=== PATIENT | male | born 1950 | race Caucasian/White ===

== ENCOUNTER 2019-12-12 15:15 | Inpatient (IN) | payer OTHER ==
[~2019-12-12] VITALS: Ht 185.4 cm; Wt 79.0 kg
[2019-12-12 15:27] VITALS: BP 135/71
[2019-12-12 15:53] LABS: BASO # 0.1 10*3/uL (0.0-0.1); BASO % 0.9 % (0.0-1.0); EOS # 0.3 10*3/uL (0.0-0.4); EOS % 2.9 % (1.0-4.0); HEMATOCRIT 48.6 % (42.0-52.0); HEMOGLOBIN 16.3 g/dl (14.0-18.0); LYMPH # 1.7 10*3/uL (1.3-4.4); LYMPH % 15.4 % (27.0-41.0); MEAN CELL VOLUME 94.6 fl (80.0-94.0); MEAN CORPUSCULAR HGB 31.7 pg (27.0-31.0); MEAN CORPUSCULAR HGB CONC 33.5 g/dl (33.0-37.0); MEAN PLATELET VOLUME 9.6 fl (9.6-12.3); MONO # 1.1 10*3/uL (0.1-1.0); MONO % 9.4 % (3.0-9.0); NEUT # 7.9 10*3/uL (2.3-7.9); NEUT % 70.9 % (47.0-73.0); PLATELET COUNT AUTOMATED 313 10*3/uL (130-400); RED BLOOD COUNT 5.14 10*6/uL (4.50-5.90); RED CELL DISTRI WIDTH 12.9 % (0-14.5); WHITE BLOOD COUNT 11.1 10*3/uL (4.8-10.8)
[2019-12-12 16:09] LABS: ALBUMIN 3.3 gm/dl (3.1-4.5); ALKALINE PHOSPHATASE 77 U/L (45-117); BUN 21 mg/dl (7-24); CHLORIDE 103 mmol/L (98-107); CREATININE 1.29 mg/dL (0.70-1.30); POTASSIUM 3.9 mmol/L (3.5-5.1); SGOT/AST 18 IU/L (3-35); SGPT/ALT 27 U/L (12-78); SODIUM 137 mmol/L (136-145)
[2019-12-12 16:11] LABS: ACETAMINOPHEN (TYLENOL) < 5.0 ug/ml (10-30); ETHYL ALCOHOL < 3.0 mg/dl (<3)
[2019-12-12 16:17] LABS: BILIRUBIN NEGATIVE (NEGATIVE); BLOOD TRACE-INTACT (NEGATIVE); CLARITY CLOUDY (CLEAR); COLOR YELLOW (YELLOW); GLUCOSE 3+ (NEGATIVE); KETONE NEGATIVE (NEGATIVE); LEUKO ESTERASE NEGATIVE (NEGATIVE); NITRITE NEGATIVE (NEGATIVE); UROBILINOGEN 0.2 E.U./dl (0.2-1.0)
[2019-12-12 16:18] LABS: RBC 0-2 rbc/hpf (0-2); WBC 0-2 wbc/hpf (0-5)
[2019-12-12 16:23] LABS: URINE AMPHETAMINES < 1000 (1000ng/ml); URINE BENZODIAZEPINES < 200 (200ng/ml); URINE CANNABINOIDS (THC) < 50 (50ng/ml); URINE COCAINE < 300 (300ng/ml); URINE METHADONE < 300 (300ng/ml); URINE OPIATES < 300 (300ng/ml)
[2019-12-12] MEDS ORDERED: SERTRALINE HYD100 MG PO (16:26)
[2019-12-12] MEDS ORDERED: VISTARIL50 MG PO ×2 (16:26→18:22)
[2019-12-12 16:27] LABS: URINE BARBITURATES < 200 (200ng/ml); URINE PHENCYCLIDINE < 25 (25ng/ml)
[2019-12-12] MEDS ORDERED: EXELON1 EACH T (18:20)
[2019-12-12] MEDS ORDERED: TOUJEO SOL300 UNIT/1 SQ (18:21)
[2019-12-12] MEDS ORDERED: NOVOLOG10 ML SC (18:24)
[2019-12-12] MEDS ORDERED: ASPIRIN CHEWABL81 MG PO (18:25)
[2019-12-12] MEDS ORDERED: BISACODYL LAXATI5 MG PO (18:25)
[2019-12-12] MEDS ORDERED: VITAMIN D35000 UNIT PO (18:26)
[2019-12-12] MEDS ORDERED: VITAMIN D325 MC1 PO (18:27)
[2019-12-12] MEDS ORDERED: GLIPIZIDE XL5 M1 PO (18:28)
[2019-12-12] MEDS ORDERED: GLUCOSAMINE HC500 M1 PO (18:29)
[2019-12-12] MEDS ORDERED: METFORMIN HCL1000 M1 PO (18:30)
[2019-12-12] MEDS ORDERED: METOPROLOL SUCC25 M2 PO (18:31)
[2019-12-12] MEDS ORDERED: PLAVIX75 M1 PO (18:31)
[2019-12-12] MEDS ORDERED: PRAVASTATIN SOD40 MG PO ×2 (18:32)
[2019-12-12 19:30] VITALS: BP 150/63
[2019-12-12 22:00] VITALS: BP 150/63
[2019-12-13 03:42] LABS: BASO # 0.1 10*3/uL (0.0-0.1); BASO % 0.8 % (0.0-1.0); EOS # 0.4 10*3/uL (0.0-0.4); HEMATOCRIT 47.7 % (42.0-52.0); HEMOGLOBIN 15.7 g/dl (14.0-18.0); LYMPH # 1.8 10*3/uL (1.3-4.4); LYMPH % 14.5 % (27.0-41.0); MEAN CELL VOLUME 94.5 fl (80.0-94.0); MEAN CORPUSCULAR HGB 31.1 pg (27.0-31.0); MEAN CORPUSCULAR HGB CONC 32.9 g/dl (33.0-37.0); MEAN PLATELET VOLUME 9.4 fl (9.6-12.3); MONO # 1.1 10*3/uL (0.1-1.0); MONO % 8.6 % (3.0-9.0); NEUT % 72.6 % (47.0-73.0); PLATELET COUNT AUTOMATED 303 10*3/uL (130-400); RED BLOOD COUNT 5.05 10*6/uL (4.50-5.90); RED CELL DISTRI WIDTH 12.9 % (0-14.5); WHITE BLOOD COUNT 12.4 10*3/uL (4.8-10.8)
[2019-12-13 03:59] LABS: ALKALINE PHOSPHATASE 68 U/L (45-117); BUN 18 mg/dl (7-24); CHLORIDE 111 mmol/L (98-107); CREATININE 0.95 mg/dL (0.70-1.30); POTASSIUM 3.2 mmol/L (3.5-5.1); SGOT/AST 12 IU/L (3-35); SGPT/ALT 22 U/L (12-78); SODIUM 146 mmol/L (136-145); TOTAL PROTEIN 6.6 gm/dL (6.4-8.2)
[2019-12-13 07:52] VITALS: BP 125/63
[2019-12-13 20:00] VITALS: BP 135/80
[2019-12-14 08:00] VITALS: BP 132/81
[2019-12-14 19:53] VITALS: BP 138/79
[2019-12-15 08:00] VITALS: BP 128/89
[2019-12-15 20:00] VITALS: BP 125/66
[2019-12-16 07:31] VITALS: BP 145/79
[2019-12-16 19:41] VITALS: BP 126/67
[2019-12-17 08:04] VITALS: BP 128/76
[2019-12-17 20:00] VITALS: BP 140/72
[2019-12-18 08:00] VITALS: BP 148/80
[2019-12-18 19:46] VITALS: BP 145/85
[2019-12-19 08:00] VITALS: BP 126/72
[2019-12-19 20:00] VITALS: BP 118/68
[2019-12-20 07:01] LABS: CHOLESTEROL 148 mg/dL (<200); HDL CHOLESTEROL 44 mg/dl (40-60); LDL CHOLESTEROL 80 mg/dL (9-159); TRIGLYCERIDES 122 mg/dl (<150); VLDL CHOLESTEROL 24 mg/dL (6-40)
[2019-12-20 07:30] VITALS: BP 150/76
[2019-12-20 20:00] VITALS: BP 126/58
[2019-12-21 07:45] VITALS: BP 122/71
[2019-12-21 19:44] VITALS: BP 135/80
[2019-12-22 07:17] VITALS: BP 135/70
[2019-12-22 19:05] VITALS: BP 147/72
[2019-12-23 07:23] VITALS: BP 050/78; BP 150/78
[2019-12-23 19:51] VITALS: BP 159/70
[2019-12-24 07:48] VITALS: BP 138/88
[2019-12-24 16:58] LABS: BILIRUBIN NEGATIVE (NEGATIVE); BLOOD NEGATIVE (NEGATIVE); CLARITY CLEAR (CLEAR); COLOR YELLOW (YELLOW); GLUCOSE NEGATIVE (NEGATIVE); KETONE NEGATIVE (NEGATIVE); LEUKO ESTERASE NEGATIVE (NEGATIVE); NITRITE NEGATIVE (NEGATIVE); PH 6.5 (5.0-9.0); SPECIFIC GRAVITY 1.015 (1.005-1.030); UROBILINOGEN 0.2 E.U./dl (0.2-1.0)
[2019-12-24 17:02] LABS: BACTERIA TRACE; HYALINE CAST 0-2
[2019-12-24 19:37] VITALS: BP 125/56
[2019-12-25 07:33] VITALS: BP 129/64
[2019-12-25] MEDS ORDERED: B121000 MCG/1 IM (09:35)
[2019-12-25] MEDS ORDERED: RISPERIDONE1 MG PO (09:35)
[2019-12-25] MEDS ORDERED: MIRTAZAPINE15 M2 PO (09:35)
[2019-12-25] MEDS ORDERED: VITAMIN D3125 MC1 PO (09:35)
[2019-12-25] MEDS ORDERED: ATARAX,VISTARIL10 MG PO (09:35)
[2019-12-25] MEDS ORDERED: RIVASTIGMINE TAR3 M1 PO (09:35)
[2019-12-25] MEDS ORDERED: MEMANTINE HCL10 MG PO (09:35)
[2019-12-25] MEDS ORDERED: LANTUS SOL100 UNIT/1 SC (10:22)
[2019-12-25] MEDS ORDERED: NOVOLOG10 ML SC (10:31)
[2019-12-25] MEDS ORDERED: PRAVASTATIN SOD40 MG PO (10:31)
[2019-12-25] MEDS ORDERED: ASPIRIN CHEWABL81 MG PO (10:31)
[2019-12-25] MEDS ORDERED: METFORMIN HCL1000 M1 PO (10:31)
[2019-12-25] MEDS ORDERED: GLIPIZIDE XL5 M1 PO (10:31)
[2019-12-25] MEDS ORDERED: METOPROLOL SUCC25 M2 PO (10:31)
[2019-12-25] MEDS ORDERED: PLAVIX75 M1 PO (10:31)
== END 2019-12-25 11:10 | disposition home or self-care (01) | DRG 56 ==
LOC: ED 15:15 → 3N 18:08
PROVIDERS: Physician Assistant; Registered Nurse; ADMIT Psychiatry & Neurology Psychiatry
DX: G30.9 Alzheimer's disease, unspecified (principal); N17.0 Acute kidney failure with tubular necrosis; R65.10 Systemic inflammatory response syndrome (SIRS) of non-infectious origin without acute organ dysfunction; E87.2 Acidosis; F02.81 Dementia in other diseases classified elsewhere, unspecified severity, with behavioral disturbance; F33.2 Major depressive disorder, recurrent severe without psychotic features; F01.51 Vascular dementia, unspecified severity, with behavioral disturbance; E11.65 Type 2 diabetes mellitus with hyperglycemia; F63.81 Intermittent explosive disorder; R26.2 Difficulty in walking, not elsewhere classified; F17.210 Nicotine dependence, cigarettes, uncomplicated; F41.9 Anxiety disorder, unspecified; E55.9 Vitamin D deficiency, unspecified; I10 Essential (primary) hypertension; E78.5 Hyperlipidemia, unspecified; Z79.4 Long term (current) use of insulin; Z79.82 Long term (current) use of aspirin; Z79.899 Other long term (current) drug therapy; K59.00 Constipation, unspecified

== ENCOUNTER 2020-01-07 20:02 | Inpatient (IN) | payer OTHER ==
[~2020-01-07 20:02] MED LIST: ASPIRIN CHEWABL81 MG PO; ATARAX,VISTARIL10 MG PO; B121000 MCG/1 IM; BISACODYL LAXATI5 MG PO; EXELON1 EACH T; GLIPIZIDE XL5 M1 PO; GLUCOSAMINE HC500 M1 PO; LANTUS SOL100 UNIT/1 SC; MEMANTINE HCL10 MG PO; METFORMIN HCL1000 M1 PO; METOPROLOL SUCC25 M2 PO; MIRTAZAPINE15 M2 PO; NOVOLOG10 ML SC; PLAVIX75 M1 PO; PRAVASTATIN SOD40 MG PO; RISPERIDONE1 MG PO; RIVASTIGMINE TAR3 M1 PO; SERTRALINE HYD100 MG PO; TOUJEO SOL300 UNIT/1 SQ; VISTARIL50 MG PO; VITAMIN D3125 MC1 PO; VITAMIN D325 MC1 PO; VITAMIN D35000 UNIT PO
[2020-01-07] MEDS ORDERED: MOTRIN IB200 M1 PO (20:20)
[2020-01-07] MEDS ORDERED: MOBIC15 MG PO (20:24)
[2020-01-07] MEDS ORDERED: SEROQUEL25 MG PO (20:27)
[2020-01-07] MEDS ORDERED: HALDOL5 MG PO (20:28)
[2020-01-07] MEDS ORDERED: TOUJEO MAX300 UNIT/1 SQ (20:32)
[2020-01-07 23:00] VITALS: BP 164/88
--- NOTE | 2020-01-07 23:00 | NUR ---
FLAQUITA JOINER a 69 year old M admitted via stretcher from [facility] as a emergency 72 hr. hold admission. Arrived on unit at 2230. ALLERGIES: NKA. Vital signs are: [id number] 164/88. The client REFUSED TO SIGN ANY OF THE following forms. Authorization For The Release of Medical Information, Clothing List, Consent to Voluntary Admission and Hospitalization, Consent and Release Forms/Receipt of Rights, Acknowledgement of Advance Directive Information, Behavioral Health Consent Form, and Informed Consent of Medications. HE DID GIVE VERBAL CONSENT FOR PICTURES TO BE TAKEN OF HIS WOUNDS. Admitted under the services of Dr. HELADIO KERN,[facility]. A search was conducted and hazardous articles were removed. Client was oriented to the unit. CR KING
--- NOTE | 2020-01-07 23:15 | NUR ---
WHILE TAKING PICTURES FOR WOUNDS, PT HAD INCREASED AGITATION, UPON ASSESSING RIGHT HAND BRUISE, PT REFUSED TO ALLOW STAFF TO TAKE MEASUREMENTS. ALLOWED PICTURE ONLY.
--- NOTE | 2020-01-07 23:30 | NUR ---
PT HAD INCREASED AGITATION. CURSING AT STAFF NUMEROUS TIMES. CLENCHED FISTS. CONTINUES TO ESCALATE & ASKING WHERE IS HIS . PUNCHED BED MATTRESS SEVERAL TIMES WITH RIGHT HAND. MEDICATED WITH ATIVAN 1 MG IM @ 2324.
--- NOTE | 2020-01-07 23:31 | NUR ---
SPOKE TO DR GILL ABOUT ADMISSION. THEN DR LEMONS CALLED AND FULL UPDATE PROVIDED. MEDICATION REC READY TO BE REVIEWED.
[2020-01-07 23:45] VITALS: BP 164/88
--- NOTE | 2020-01-08 00:15 | NUR ---
PT HAS CONTINUED TO ESCALATE. CONTINUED BEHAVIORS. AMBULATED IN THE [place] & STOOD AT DOOR OF ANOTHER PT. ANGERED ON REDIRECTION. CONSTANT PROFANITY. YELLING OUT FOR HIS . SWINGING AT STAFF WITH VERBAL THREATS. MEDICATED WITH GEODON 10 MG IM @ 0008.
--- NOTE | 2020-01-08 00:23 | NUR ---
MESSAGE OF ADMISSION AND FULL UPDATE PROVIDED ON ANSWERING MACHINE FOR ZIA DAO
--- NOTE | 2020-01-08 04:36 | NUR ---
PT AWAKE AT THIS TIME. SLEPT PAST 0100. YELLING OUT FOR HIS PERFECTO.
[2020-01-08 06:05] LABS: BASO # 0.1 10*3/uL (0.0-0.1); BASO % 0.6 % (0.0-1.0); EOS # 0.2 10*3/uL (0.0-0.4); EOS % 1.8 % (1.0-4.0); HEMATOCRIT 40.5 % (42.0-52.0); LYMPH % 19.6 % (27.0-41.0); MEAN CELL VOLUME 96.2 fl (80.0-94.0); MEAN CORPUSCULAR HGB 31.6 pg (27.0-31.0); MEAN CORPUSCULAR HGB CONC 32.8 g/dl (33.0-37.0); MONO # 0.8 10*3/uL (0.1-1.0); MONO % 7.8 % (3.0-9.0); NEUT # 7.2 10*3/uL (2.3-7.9); NEUT % 69.8 % (47.0-73.0); PLATELET COUNT AUTOMATED 282 10*3/uL (130-400); RED BLOOD COUNT 4.21 10*6/uL (4.50-5.90); RED CELL DISTRI WIDTH 13.2 % (0-14.5); WHITE BLOOD COUNT 10.2 10*3/uL (4.8-10.8)
[2020-01-08 06:33] LABS: ALBUMIN 3.2 gm/dl (3.1-4.5); ALKALINE PHOSPHATASE 66 U/L (45-117); BUN 16 mg/dl (7-24); CHLORIDE 109 mmol/L (98-107); CHOLESTEROL 121 mg/dL (<200); CREATININE 0.87 mg/dL (0.70-1.30); HDL CHOLESTEROL 40 mg/dl (40-60); LDL CHOLESTEROL 56 mg/dL (9-159); POTASSIUM 3.7 mmol/L (3.5-5.1); SGOT/AST 16 IU/L (3-35); SGPT/ALT 18 U/L (12-78); SODIUM 143 mmol/L (136-145); TOTAL PROTEIN 6.6 gm/dL (6.4-8.2); TRIGLYCERIDES 126 mg/dl (<150); VLDL CHOLESTEROL 25 mg/dL (6-40)
--- NOTE | 2020-01-08 06:37 | NUR ---
FLAQUITA JOINER [id number] Please refer to the physician's history and physical for past medical history, comorbid conditions, and allergies. Diagnosis: INTERMITTANT EXPLOSIVE DISORDER Doc Score: 16,AT RISK WOUND DESCRIPTIONS: Wound Number: 1 Location of the wound: left elbow Type of wound: skin tear Thickness: Partial Size: 4.0cm x 0.8cm x <0.1cm Tunneling: none Undermining: none Sinus Tract: none Presence of Exudate: none Amount: None Color: Dark red Odor: None Periwound Skin Appearance: Erythema Wound edges: approximated Pain (associated with wound): none at time of assessment How does patient state this happened? pt unable to stated how this happened Wound Number: 2 Location of the wound: left 2nd toe medial Type of wound: DTI Size: 3.0cm x 0.7cm x <0.1cm Tunneling: none Undermining: none Sinus Tract: none Presence of Exudate: none Amount: None Color: Dark red Odor: None Periwound Skin Appearance: Normal Wound edges: approximated Pain (associated with wound): none at time of assessment How does patient state this happened? pt unable to state how this happened Wound Number: 3 Location of the wound: left 4th toe Type of wound: DTI Size: 0.6cm x 0.5cm x <0.1cm Tunneling: none Undermining: none Sinus Tract: none Presence of Exudate: none Amount: None Color: Red, Purple Odor: None Periwound Skin Appearance: Normal Wound edges: approximated Pain (associated with wound): none at time of assessment How does patient state this happened? pt unable to state how this happened Wound Number: 4 Location of the wound: left foot 3rd toe Type of wound: DTI Size: 1.5cm x 2.5cm x <0.1cm Tunneling: none Undermining: none Sinus Tract: none Presence of Exudate: none Amount: None Color: Purple, Dark Red Odor: None Periwound Skin Appearance: Normal Wound edges: approximated Pain (associated with wound): none at time of assessment How does patient state this happened? pt unable to state how this happened Wound Number: 5 Left elbow ecchymotic area measures 14.0cm x 9.0cm x <0.1cm. No drainage noted at time of assessment. No pain noted at time of assessment. Pt unable to state how this happened Wound Number: 6 Right hand ecchymotic area measures 14.5cm x 8.5cm x <0.1cm. No drainage noted at time of assessment. No pain noted at time of assessment. Pt unable to state how this happened Wound Number: 7 Location of the wound: left 2nd toe lateral Type of wound: DTI Size: 3.0cm x 1.0cm x <0.1cm Tunneling: none Undermining: none Sinus Tract: none Presence of Exudate: none Amount: None Color: Red Odor: None Periwound Skin Appearance: Normal Wound edges: approximated Pain (associated with wound): none at time of assessment How does patient state this happened? pt unable to state how this happened Wound Number: 8 Location of the wound: left top of foot Type of wound: scab Thickness: Partial Size: 0.6cm x 0.5cm x <0.1cm Tunneling: none Undermining: none Sinus Tract: none Presence of Exudate: none Amount: None Color: Red Odor: None Periwound Skin Appearance: Normal Wound edges: approximated Pain (associated with wound): none at time of assessment How does patient state this happened? pt unable to state how this happened Wound Number: 9 Location of the wound: right top of foot Type of wound: scab Thickness: Partial Size: 0.2cm x 0.2cm x <0.1cm Tunneling: none Undermining: none Sinus Tract: none Presence of Exudate: none Amount: None Color: Red Odor: None Periwound Skin Appearance: Normal Wound edges: approximated Pain (associated with wound): none at time of assessment How does patient state this happened? pt unable to state how this happened Wound Number: 10 Location of the wound: right 4th toe Type of wound: DTI Size: 0.2cm x 0.4cm x <0.1cm Tunneling: none Undermining: none Sinus Tract: none Presence of Exudate: none Amount: None Color: Red Odor: None Periwound Skin Appearance: Normal Wound edges: approximated Pain (associated with wound): none at time of assessment How does patient state this happened? pt unable to state how this happened Wound Number: 11 Location of the wound: left knee Type of wound: abrasion Thickness: Partial Size: 2.0cm x 3.7cm x 0.1cm Tunneling: none Undermining: none Sinus Tract: none Presence of Exudate: none Amount: None Color: Red Odor: None Periwound Skin Appearance: Normal Wound edges: approximated Pain (associated with wound): none at time of assessment How does patient state this happened? pt unable to state how this happened Wound Number: 12 Location of the wound: right knee Type of wound: abrasion Thickness: Partial Size: 1.5cm x 2.0cm x <0.1cm Tunneling: none Undermining: none Sinus Tract: none Presence of Exudate: none Amount: None Color: Red Odor: None Periwound Skin Appearance: Normal Wound edges: approximated Pain (associated with wound): none at time of assessment How does patient state this happened? pt unable to state how this happened Periarea red satelitte areas noted at time of assessment. Musty odor noted at time of assessment. Buttocks red and blanchable at time of assessment. No open areas noted to buttocks. No drainage at time of assessment. Patient incontient of urine and stool at this time. Pericare provided by this RN as well as RN caring for patient Valeria. Surface the patient is resting on: Ghislaine Watters SKIN PREVENTION RECOMMENDATION: 1. Pressure redistribution support surface as appropriate 2. Elevate heels 3. Remove boots/TEDS every shift and reapply 4. Head of bed 30 degrees as tolerated 5. Assess nutrition and hydration 6. Manage moisture 7. Avoid the use of containment devices while in bed 8. Use absorptive products on surfaces limit layers of linens on bed 9. Turn and reposition every 1-2 hours in bed and every 1 hour in chair as tolerated 10. Weight shifts every 15 minutes while up in chair 11. Offloading with pillows or device to keep heels elevated off bed 12. Monitor skin at least every shift 13. Inspect under medical devices twice a day WOUND TREATMENT RECOMMENDATIONS: Continue wheelchair cushion when oob. Heel raiser pro boots to bilateral feet while in bed. Elbow protectors to bilateral elbows at all times expect for hygiene. Cleanse periarea with soap and water and apply nystatin powder every 8 hours. Cleanse buttocks with soap and water and apply hydraguard every shift and prn for soiling. Partial thickness guidelines: Cleanse left elbow, right knee and left knee with nss and apply sureprep around the wound hydrogel to wound bed and cover with optifoam gentle. DTI guidelines: Apply sureprep to right 4th toe, left 2nd toe medial, left 2nd toe lateral, left 4th toe, and left 3rd toe BID and leave areas open to air. Venous and arterial studies to bilateral extremities due to non-healing wound.
[2020-01-08 07:07] LABS: VITAMIN D, 25-HYDROXY 45.4 ng/mL (30-100)
[2020-01-08 08:00] VITALS: BP 168/78
--- NOTE | 2020-01-08 08:33 | NUR ---
PHYSICAL THERAPY Screen and PT eval received will follow thank you Francisca Guillory PT
[2020-01-08 08:49] VITALS: BP 132/72
--- NOTE | 2020-01-08 08:49 | NUR ---
KINDRA MARCELINO CNP ON UNIT TO ASSESS PATIENT.
--- NOTE | 2020-01-08 08:50 | NUR ---
KINDRA MARCELINO CNP ON UNIT TO ASSESS PATIENT.
--- NOTE | 2020-01-08 09:11 | NUR ---
TREATMENT PLAN MEETING WAS HELD WITH DR. LEIJA, ADRIEL PLUMMER RN AND DREDGE WORKER. PLAN FOR DISCHARGE NEXT WEEK. DR. LEIJA HAS REQUESTED PAS FOR POSSIBLE PLACEMENT AND PT/OT CONSULT.
--- NOTE | 2020-01-08 09:44 | NUR ---
Dr. Patty Bhagat HYDROSTATIC TUBING TESTER notified of wound care recommendations.
--- NOTE | 2020-01-08 11:44 | NUR ---
Nutritional Support Services Note: Pt has wounds noted to knees and periarea. Appetite is good for meals. 1800cal diet as ordered. Pt receives a night snack. Recommend Glucerna OS po TID with meals to help increase kcal and protein to promote healing. Will follow if needed. Zehra Powers Rdn Ld
--- NOTE | 2020-01-08 12:15 | NUR ---
P: INCREASED RESTLESSNESS, AGITATION , VERBAL AGGRESSION TOWARDS STAFF, THROWING LUNCH FOOD/DRINK; MEAL TRAY ON FLOOR. BROKE HEEL PROTECTOR STRAPS, TAKES HEEL PROTECTORS OFF-NON COMPLAINT. YELLING OUT FOR PERFECTO-SPOUSE. I:ONE ON ONE, REDIRECTIONS, REORIENTATIN, CHANGE OF ENVIORNMENT WITH LOW STIMULI AND PLACED PHONE CALL TO SPOUSE PER PATIENT REQUEST. R: INEFFECTIVE. BEHAVIORS CONTINUED TO ESCULATE. PRN ATIVAN 1MG GIVEN IN RIGHT DELTOID. PATIENT IS ALERT TO PERSON WITH CONFUSION. BELIEVES HE IS IN [place], YEAR 1976. MOOD IS IRRITABLE, RESTLESSS, ANGRY, VERBAL AGGRESSIIVE. DENIES ANY HALLUCINATIONS, DELUSIONS, HI/SI OR PAIN. MEDICATION COMPLAINT. Q 15 MINUTE SAFETY CHECKS MAINTAINED. UP IN CHADWICK CHAIR FOR COMFORT. 2 PERSON ASSIST WITH ACTIVITIES OF DAILY LIVING, INCONTINENT OF BOWEL AND BLADDER. SET UP FOR MEALS, INTAKES ARE VARY. P: CONTINUE TO MONITOR MOOD, AGGRESSION, AND EFFECTIVENESS OF PRN ATIVAN. PROVIDE ONE ON ONE, REDIRECTION/ORIENTATION, CHANGE OF ENVIRONMENT. ENCOURAGE GROUP PARTICIPATION AND MEAL INTAKES.
--- NOTE | 2020-01-08 12:15 | NUR ---
Nursing screen and occupational therapy orders received. OTR spoke with patient's nurse, Enriqueta, who stated patient has increased agitation, and to defer an OT evaluation to a later date. Will continue to follow. Thank you. Christie Berkowitz OTR/L
--- NOTE | 2020-01-08 12:15 | NUR ---
PHYSICAL THERAPY Therapy spoke with nurse (Enriqueta) regarding PT/OT evaluation this date. Nursing reporting that patient is agitated. Plan to defer PT evaluation this date and attempt again at a later date. Thank you. Megan Ch,PT,DPT
--- NOTE | 2020-01-08 12:49 | NUR ---
INITIAL CLINICALS FAXED TO [facility] AT [phone]
--- NOTE | 2020-01-08 13:00 | NUR ---
client was here less than 30 days on the unit, however i did meet with client and assess him. he is confused and upset, he reports that he might as well because what good is he, he doesmt understand where his is and asks about her frequently. he said that he gets very mad and beats on things, his hand is red and he was tearing up his chair and his leg guards. he reprts that he cant figure anything out. he resides with his , and became more combative and confused. please review the psychosocial from december 2019 for hx.
--- NOTE | 2020-01-08 13:15 | NUR ---
PRN ATIVAN EFFECTIVE, PATIENT IN A CALM DEMEANOR. PATIENT STRAIGHT CATH FOR UA/C&S, TOLERATED WELL, BED BATH PROVIDED WITH NO AGGRESSION. TREATMENT IN PLACE. PATIENT ASSISTED UP IN CHADWICK CHAIR AND IN DINING ROOM, LISTENING TO MUSIC.
[2020-01-08 13:49] LABS: BILIRUBIN NEGATIVE (NEGATIVE); BLOOD NEGATIVE (NEGATIVE); CLARITY CLEAR (CLEAR); COLOR YELLOW (YELLOW); GLUCOSE NEGATIVE (NEGATIVE); KETONE NEGATIVE (NEGATIVE); LEUKO ESTERASE NEGATIVE (NEGATIVE); NITRITE NEGATIVE (NEGATIVE); SPECIFIC GRAVITY 1.025 (1.005-1.030); UROBILINOGEN 0.2 E.U./dl (0.2-1.0)
--- NOTE | 2020-01-08 18:00 | NUR ---
PATIENT'S SPOUSE CALLED IN FOR UPDATE. INFORMED NURSE THAT PATIENT FELL OUT OF BED AT HOME ON SATURDAY. WAS COMPLAINING OF PAIN ON SATURDAY. PATIENT SITTING IN CHADWICK CHAIR, RESTING QUIETLY. REPOSITIONED IN CHAIR FOR DINNER. ASKED PATIENT IF HE HAD ANY PAIN, NONE AT THIS TIME. ASSESSED ROM OF MOTION NO DIFFERENCES NOTED TO BILATERAL EXTREMITIES. NO SWELLING OR REDNESS NOTED TO SHOULDERS. BRUISES NOTED TO LEFT UPPER ARM, NEAR SHOULDER/ARMPIT. WILL CONTINUE TO MONITOR.
[2020-01-08 19:43] VITALS: BP 160/80
--- NOTE | 2020-01-08 19:58 | NUR ---
24 HR chart check completed.
--- NOTE | 2020-01-08 20:56 | NUR ---
P-RESTLESS, AGITATION, CONFUSION, VERBAL AGGRESSION I-PROVIDE 1:1 FOR EMOTIONAL SUPPORT, REORIENT, REDIRECT, ADMINISTER MEDS, MONITOR SLEEP R-PT IRRITABLE & EASILY AGITATED & YELLS OUT FREQUENTLY FOR HIS , ALERT TO PERSON ONLY & VERY CONFUSED. UNRECEPTIVE TO REORIENTATION. 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 ATE SNACK INDEPENDENTLY & TAKING FLUIDS. INCONTINENT OF BLADDER. HS BEDSIDE GLUCOSE 291. P-CONTINUE TO MONITOR BEHAVIORS & PROVIDE PHYSICAL ASSISTANCE & EMOTIONAL SUPPORT.
--- NOTE | 2020-01-08 21:39 | NUR ---
PT HAS CONTINUED TO ESCELATE. DISRUPTIVE TO THE UNIT. YELLING OUT FOR HIS . POUNDING ON CHADWICK CHAIR TRAY. EASILY AGITATED WITH PRESENTATION OF REALITY OF WHERE HIS IS. ATTEMPTS TO KICK AT STAFF. VERBAL INTERVENTION INEFFECTIVE. MEDICATED WITH ATIVAN 1 MG IM @ 2112.
--- NOTE | 2020-01-09 06:17 | NUR ---
AM BEDSIDE GLUCOSE 127
--- NOTE | 2020-01-09 06:43 | NUR ---
ATIVAN HAS BEEN EFFECTIVE & PT WAS SLEEPING AT 2300. NOTED TO SLEEP APPX 6 HOURS WITH A FEW BRIEF RESTLESS AWAKENINGS.
[2020-01-09 07:45] VITALS: BP 132/70
--- NOTE | 2020-01-09 07:50 | NUR ---
Patient resting quietly with no c/o discomfort. Respirations easy and regular. Vital signs stable. No overt distress. Breakfast tray saved d/t pt sleeping at this time. Maty HNP- on unit to see pt at this time. MADELYN JUAREZ
--- NOTE | 2020-01-09 09:25 | NUR ---
Peg CHILI PEPPER GRINDER on unit to see pt at this time, update given.
--- NOTE | 2020-01-09 10:30 | NUR ---
AM GROUP - GOAL SETTING. Spent time talking with pts in group setting re: setting goals for the day. Encouraged pt to set short term goal that could be accomplished this day. Pt states "my only goal for all my life is to be with my 24 hours a day, 7 days a week".
--- NOTE | 2020-01-09 10:43 | NUR ---
Pt's Elenita called in for update, update given. asked this RN if there had been an xray done on left shoulder d/t pt falling out of bed at home on Saturday and complaining of pain to left shoulder. Advised this RN would discuss with physician. states she will call in later today to speak with pt. This RN assessed pt, small bruise noted to top of left shoulder. Pt denies pain to area. Pt denies pain anywhere else. ROM WNL for pt. Peg LOADING UNIT OPERATOR CRIMPING updated, states will obtain left shoulder xray.
--- NOTE | 2020-01-09 13:03 | NUR ---
Pt becoming agitated, yelling/cursing at staff. Demanding to see his . Pt took off clip alarm and threw across dining room. Escort called at this time re: taking pt to xray. Pt too agitated at this time, will reattempt. Pt took 1300 dose of Vistaril without difficulty. Will cont to monitor.
--- NOTE | 2020-01-09 15:17 | NUR ---
Attempted to call radiology x2 to reattempt xray at this time as pt is more calm at this time. No answer. Will reattempt.
--- NOTE | 2020-01-09 15:20 | NUR ---
PM GROUP - STRETCHING/CHAIR YOGA. Pt agreed to participate but instead napped throughout afternoon group.
--- NOTE | 2020-01-09 16:22 | NUR ---
Pt off unit for left shoulder xray at this time with escort, U MHW and security installer.
--- NOTE | 2020-01-09 16:44 | NUR ---
Pt returned to unit from xray without incident.
--- NOTE | 2020-01-09 17:25 | NUR ---
Pt ate 100% of dinner, pleasant and cooperative. Asked to lay down. Pt spoke to on telephone then laid down for rest period at this time. Pt educated on use of call katz and "call don't fall", pt verbalized understanding. Bed alarm activated.
--- NOTE | 2020-01-09 17:28 | NUR ---
P- Labile mood, confusion, poor ST memory recall restless and difficult to redirect at times. Pt voices wish when upset. I- Orientation, mood and behaviors assessed. Assessed pt for SI/HI, intent or plan. Assessed pt for s/s hallucinations, paranoia and/or delusions. Medications administered as per physician's orders. Assistance with ADL care provided as needed. Encouraged pt to attend and participate in [place] milieu groups and activities. R- Pt is alert and oriented to self only, otherwise confused. Very poor ST memory recall noted. Pt requires frequent reorientation by staff which is only effective for short periods of time. Resps easy and even on room air. Labile mood and affect noted, pt ranges from calm to agitated/demanding to overwhelmingly depressed and tearful. Pt denies SI/HI, intent or plan when asked. However, pt does make statements indicative of passive wish whenever he becomes upset. Pt intermittently tearful while on phone with and was overheard making negative statements such as "why can't I just ? Then you'll be rid of me. I'm no good anyway". Emotional support provided at conclusion of call with positive effect. Pt denies hallucinations, no response to internal stimuli noted. No paranoia noted. Pt is medication compliant without difficulty. Continent of bowel and bladder this date, compliant with hands on care. No aggressive behaviors displayed. P- Plan to continue current treatment, continue to monitor mood and behaviors, provide appropriate reorientation, redirection and 1:1 as needed. Continue to encourage medication compliance as well as group attendance and participation.
--- NOTE | 2020-01-09 17:47 | NUR ---
shift chart check completed.
[2020-01-09 19:30] VITALS: BP 138/67
--- NOTE | 2020-01-09 21:22 | NUR ---
24 HR chart check completed.
--- NOTE | 2020-01-09 23:14 | NUR ---
P: CONFUSION, POO ST MEMORY RECALL, AGGITATION I:aSSESS MOOD AND BEHAVIOR, ASSESS SI/HI, MONITOR FOR HALLUCINATIONS, DELUSIONS, AND PARANOIA. aSSIST WITH CARE AND ENCOURAGE MWED COMPLIANCE. eNCOURAGE VERBALIZATION OF FEELINGS. R: fREQUENT REORIENTATION AND REDIRECTION BY STAFF. ALERT AND ORIENT TO SELF ONLY. MOOD CHANGES QUICKLY...RANGES FROM CALM AND PLOEASANT TO RESTLESS AND AGGITATED TO DEPRESSED AND CRYING. OBSESSIVE ABOUT SPEAKING WITH HIS ON THE PHONE, WHEN HE DOES, HE BECOMES ANGRY WITH HER AND AGGITATED. DIFFICULT TO REDIRECT. TELLS HER HE WANTSA TO SO SHE DOESN'T HAVE TO WORRY WBOUT HIM ANYMORE. WAS ON A TANGENT TONIGHT ABOUT BEING ABLE TO HOLD HIS IN HIS ARMS AND SLEEP WITH HER. REFUSED TO WEAR A GOWN OR HIS PRO OFFER BOOTS. P: CONTINUE TO MONITOR MOOD AND BEHAVIORS, PROVIDE REORIENTATION AND REDIRECTION. ENCOURAGE MED COMPLIANCE.
[2020-01-10 07:29] VITALS: BP 111/61; BP 128/64
--- NOTE | 2020-01-10 07:36 | NUR ---
Patient eating breakfast in dining room with peers, feeding self. Respirations easy and regular. Vital signs stable. No overt distress. MADELYN JUAREZ-LEONOR on unit to see pt at this time, update given.
--- NOTE | 2020-01-10 10:30 | NUR ---
AM GROUP - GOAL SETTING. Spoke with pts in group setting re: setting short term goal that can be accomplished this date. Pt states "my only goal is to go home and be with my ".
--- NOTE | 2020-01-10 15:30 | NUR ---
PM GROUP - STRETCHING/CHAIR YOGA. Pt agreed to participate but instead chose to sit and observe.
--- NOTE | 2020-01-10 18:35 | NUR ---
P- Labile mood, confusion, poor ST memory recall, periods of tearfulness, preoccupied with talking to, seeing, and being with his "24/7", difficult to reorient/redirect and becomes irritable at times. Continues to voice passive wish when upset. I- Orientation, mood and behaviors assessed. Assessed pt for SI/HI, intent or plan. Assessed pt for s/s hallucinations, paranoia and/or delusions. Medications administered as per physician's orders. Assistance with ADL care provided as needed. Encouraged pt to attend and participate in [place] milieu groups and activities. R- Pt is alert and oriented to self only, otherwise confused. Very poor ST memory recall. Resps easy and even on room air. Mood remains labile, pt with periods of tearfulness and intermittently agitated/irritable. Pt denies SI/HI, intent or plan. Pt continues to voice passive wish when he becomes upset but contracts for safety on unit. Pt denies hallucinations, no response to internal stimuli noted. No paranoia or delusions noted. Pt is medication compliant without difficulty. Pt is preoccupied with seeing, talking to and being with his "24/7" per his report. Pt is very difficult to reorient/redirect as to why his can not be here on the unit with him 24/7. Pt talks to via telephone and soon forgets stating "I haven't talked to my in months". Pt becomes irritable/agitated at times upon attempts to reorient/redirect. Pt pounds on chair and table but has not displayed or threatened physical violence toward staff or peers. Meal intakes good with adequate fluid intake. Compliant with hands on care. No acute distress noted. P- Plan to cotinue current treatment, continue to monitor mood and behaviors, provide appropriate reorientation, redirection and 1:1 as needed. Continue to encourage medication compliance as well as group attendance and participation.
--- NOTE | 2020-01-10 18:46 | NUR ---
Shift chart check completed.
[2020-01-10 19:31] VITALS: BP 130/58
--- NOTE | 2020-01-10 20:06 | NUR ---
DR COVARRUBIAS UPDATED ON [phone] ABOUT BLOOD RESULT OF 404. DR COVARRUBIAS TO REVIEW HOME MEDICATIONS AND GIVE SLIDING SCALE PER ORDER.
--- NOTE | 2020-01-10 21:19 | NUR ---
RECHECKED BLOOD SUGAR WITH RESULT OF 399. PATIENT REFUSED SNACK AT HS. PATIENT MEDICATION COMPLIANT. PATIENT TOILETED AND FLUIDS PROVIDED
--- NOTE | 2020-01-10 23:25 | NUR ---
P-CONFUSED, PREOCCUPIED, TEARFUL. IRRITABLE I-REDIRECTION WITH 1:1 THERAPEUTIC INTERVENTIONS AND PRESENT REALITY. EDUCATE AND ENCOURAGE MEDICATION COMPLIANCE R-PATIENT MEDICATION COMPLIANT AT HS. PATIENT TEARFUL AND PREOCCUPIED WITH WANTING TO SEE HIS . PATIENT UPSET AND HITTING SELF IN HEAD DUE TO NOT BEING ABLE TO SEE . ALL NONPHARMACOLOGIC INTERVENTIONS ATTEMPTED WITH INEFFECTIVE RESULTS. PATIENT MEDICATED WITH ATIVAN 1MG PO WITH EFFECTIVE RESULTS. PATIENT ABLE TO REST IN BED AND STATED "I WILL TALK TO YOU ABOUT MY TOMORROW". PATIENT WITH NO HALLUCINATIONS OR DELUSIONS. PATIENT WITH NO SUICIDAL OR HOMICIDAL IDEATIONS. PATIENT WITH SHORT TERM AND SENIOR LIVING MEMORY DEFICITS. P-CONTINUE TO ENCOURAGE MEDICATION COMPLIANCE, CONTINUE TO PRESENT REALITY, ENCOURAGE GROUP THERAPY WHILE AWAKE
--- NOTE | 2020-01-11 04:25 | NUR ---
Upon discharge recommend patient to follow up for wound care in outpatient setting continue current wound care orders at discharging facility.
--- NOTE | 2020-01-11 05:42 | NUR ---
PATIENT SLEPT 8 HOURS OF INTERRUPTED SLEEP THROUGHOUT SHIFT. Q 15 MINUTE CHECKS MAINTAINED. 24 HR chart check completed.
[2020-01-11 08:00] VITALS: BP 119/52
--- NOTE | 2020-01-11 09:08 | NUR ---
KINDRA MARCELINO CNP ON UNIT TO ASSESS PATIENT.
--- NOTE | 2020-01-11 09:15 | NUR ---
KINDRA MARCELINO DIRECTOR TRANSPORTATION ON UNIT TO ASSESS PT, UPDATE PROVIDED.
--- NOTE | 2020-01-11 09:57 | NUR ---
Occupational Therapy evaluation completed on three with full evaluation to follow. Recommend occupational therapy per plan of care and SNF upon discharge. Thank you for this referral. Christie Berkowitz OTR/L
--- NOTE | 2020-01-11 09:58 | NUR ---
PHYSICAL THERAPY Physical Therapy evaluation completed on 3 with full evaluation to follow. Low complexity PT evaluation per chart review and evalation, [id number]. Recommend physical therapy per plan of care and SNF upon discharge. Thank you for this referral. Megan Ch,PT,DPT
--- NOTE | 2020-01-11 13:25 | NUR ---
P: PT YELLING OUT, POUNDING ON TABLE, TEARFUL, CURSING AT STAFF, THREW DRINK ON THE FLOOR, INCREASED RESTLESS AND AGITATION I: PROVIDE EMOTIONAL SUPPORT AND 1:1 FOR PT TO VOICE FEELINGS, TOILETED, OFFERED DIVERSIONAL ACTIVITES SUCH BUILDING BLOCKS AND MAGAZINES, PROVIDED LOW STIMULATION ENVIRONMENT FOR PT TO CALM R: PT CONTINUES TO EXHIBIT ABOVE BEHAVIORS, ALL INTERVENTIONS INEFFECTIVE. P: PT MEDICATED WITH ATIVAN 1 MG IM PRN PER ORDERS, MONITOR PT BEHAVIORS ON Q15 MIN SAFETY CHECKS, CONTINUE TO PROVIDE EMOTIONAL SUPPORT AND 1:1 FOR PT TO VOICE FEELINGS, PROVIDE LOW STIMULATION ENVIRONMENT FOR PT TO CALM.
--- NOTE | 2020-01-11 13:30 | NUR ---
SPOKE WITH KINDRA MARCELINO BI TECHNICAL LEAD REGARDING PT ORDERS FOR ULTRASOUND OF BLE, ADVISED THAT PT IS HAVING AN INCREASEW IN BEHAVIORS AT THIS TIME AND IT MAY BE BETTER TO COMPLETE THOSE TOMORROW, PER KINDRA THAT IS FINE, NO FURTHER ORDERS AT THIS TIME.
--- NOTE | 2020-01-11 14:26 | NUR ---
ULTRASOUND CALLED, THIS NURSE ADVISED THAT WE WILL ATTEMPT TO COMPLETE TESTING TOMORROW D/T INCREASE IN PT BEHAVIORS.
--- NOTE | 2020-01-11 14:40 | NUR ---
ATIVAN EFFECTIVE AT THIS TIME. PT NOTICEABLY CALMER, RESTING IN [place] IN QUIET ROOM WITH EYES CLOSED.
--- NOTE | 2020-01-11 14:47 | NUR ---
Family meeting held via the phone with pt's Ines. Discussed pt's behaviors prior to [facility] admission. Ines stated that pt's behaviors worsened at times in the afternoon but primarily in the evening hours. She reported that pt had been sleeping well through the night. Ines would prefer that pt return home upon discharge but there must be an improvement in pt's behaviors. Reviewed pt's current medications with Ines.
--- NOTE | 2020-01-11 15:24 | NUR ---
Shift chart check completed.
--- NOTE | 2020-01-11 15:29 | NUR ---
PT YELLING OUT "PERFECTO PERFECTO", POUNDING ON TABLE, CURSING AT STAFF, REMOVING BODY ALARM FROM CHAIR AND THROWING IT, INCREASINGLY ANXIOUS AND RESTLESS, TEARFUL. PT PROVIDED LOW STIMULATION ENVIRONMENT FOR PT TO CALM, STAFF PROVIDED EMOTIONAL SUPPORT AND 1:1 FOR PT TO VOICE FEELINGS. ALL INTERVENTIONS INTEFFECTIVE, PT CONTINUES TO YELL OUT, CURSE AT STAFF AND POUND ON THE TABLE. PT MEDICATED WITH GEODON 10 MG IM PER ORDERS. WILL CONTINUE TO MONITOR PT BEHAVIORS.
[2020-01-11 19:36] VITALS: BP 144/82
--- NOTE | 2020-01-11 22:24 | NUR ---
P-CONFUSED, PREOCCUPIED I-REDIRECTION WITH 1:1 THERAPEUTIC INTERVENTIONS AND PRESENT REALITY. EDUCATE AND ENCOURAGE MEDICATION COMPLIANCE R-PATIENT MEDICATION COMPLIANT AT HS. PATIENT PREOCCUPIED WITH WANTING TO SEE HIS . PATIENT RESTLESS AT TIMES IN BED. PATIENT WITH NO HALLUCINATIONS OR DELUSIONS. PATIENT WITH NO SUICIDAL OR HOMICIDAL IDEATIONS. 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 PATIENT MEDICATED WITH MILK OF MAGNESIA DUE TO NO BOWEL MOVEMENT X 3 DAYS. MILK OF MAGNESIA WITH INEFFECTIVE RESULTS AT THIS TIME. PATIENT WITH BILATERAL HEEL PROTECTORS ON AND ELBOW PROTECTORS WHILE IN BED. PATIENT PROVIDED FLUIDS AND TOILETING AT HS BUT REFUSED NOURISHMENT. P-CONTINUE TO ENCOURAGE MEDICATION COMPLIANCE, CONTINUE TO PRESENT REALITY, ENCOURAGE GROUP THERAPY WHILE AWAKE
--- NOTE | 2020-01-12 06:07 | NUR ---
PATIENT SLEPT 8 HOURS OF UNINTERRUPTED SLEEP THROUGHOUT SHIFT. Q 15 MINUTE CHECKS MAINTAINED. 24 HR chart check completed.
[2020-01-12 08:00] VITALS: BP 149/73
--- NOTE | 2020-01-12 08:00 | NUR ---
PATIENT SITTING IN DINING ROOM WITH PEERS, EATING BREAKFAST AT THIS TIME. PLEASANT WITH CONVERSATION. NO S/S OF DISTRESS NOTED. Q15 MINUTE CHECKS MAINTAINED FOR SAFETY.
--- NOTE | 2020-01-12 08:30 | NUR ---
Treatment Plan meeting was held with Dr. Sweeney, ADRIEL Nance RN, 4TH GRADE TEACHER-S and Directional Bore Operator. Plan for discharge Next week. Pt. will return home with his .
--- NOTE | 2020-01-12 09:56 | NUR ---
PATIENT COMPLAIN OF LEFT SHOULDER PAIN THAT IS ACHING, RATING 8 OUT OF 10. PATIENT REQUESTING AND RECEIVED AT THIS TIME TYLENOL PO PER ORDERS. WILL CONTINUE TO MONITOR FOR EFFECTIVENESS.
--- NOTE | 2020-01-12 10:28 | NUR ---
PATIENT OFF THE FLOOR AT THIS TIME VIA WHEELCHAIR ESCORTED BY STAFF AND SECURITY FOR VENOUS/ARTERIAL ULTRASOUNDS. PATIENT PLEASANT, COOPERATIVE, NO S/S OF DISTRESS NOTED.
--- NOTE | 2020-01-12 11:00 | NUR ---
OT NOTE Prior to coming to the floor spoke with Chad and reported that therapy was coming to the floor to treat this pt. Chad reported that pt is currently off the floor for a medical test. Will check back at a later time/date and continue with POC as able. CLARA Sarah/Nickolas
--- NOTE | 2020-01-12 11:00 | NUR ---
PATIENT BACK ON THE FLOOR.
--- NOTE | 2020-01-12 11:03 | NUR ---
PT WAS APPROVED PER FAX WITH NEXT REVIEW DATE 01/11. AUTH NUMBER [id number]. CONCURRENT REVIEW CLINICALS FAXED TO [phone]
--- NOTE | 2020-01-12 11:06 | NUR ---
PHYSICAL THERAPY CALLED TO GINO AND LAURA STATED THAT PT IS OUT FOR A TEST AND CAN NOT BE TREATED AT THIS TIME. PHYSICAL THERAPY WILL ATTEPMT AGAIN AT A LATER TIME/ DATE. ANTON BRANDT PTA
--- NOTE | 2020-01-12 11:10 | NUR ---
PATIENT STATING THAT PRN TYLENOL FOR LEFT SHOULDER PAIN WAS EFFECTIVE. NO FURTHER VOICED COMPLAINTS AT THIS TIME.
--- NOTE | 2020-01-12 11:50 | NUR ---
FAM MARCELINO ON FLOOR TO ASSESS PATIENT, UPDATE PROVIDED.
--- NOTE | 2020-01-12 12:15 | NUR ---
Pt pleasant with this magazine writer this AM. Pt voiced difficulty in understanding why he can't see his . Explained the restrictions due to COVID 19. Pt stated that he did remember hearing about the virus. Empathized with pt as he continued to voice concern about not seeing his . Later assisted pt with last few bites of his lunch that he had difficulty with getting on his spoon. Pt was appreciative and spoke of his again. Pt voiced frustration about not being able to see his . Reoriented pt to the current visitation restrictions and the reason for this. Pt voiced understanding.
--- NOTE | 2020-01-12 12:30 | NUR ---
PHYSICAL THERAPY Physical therapy treatment complete. Patient in recreational room at time of entry and identified via wristband. Patient agreeable to participate in skilled PT services. Patient taken into hallway in wheelchair. Patient performed gait training with MinAx1 10'x2 with rest break in between. Verbal and tactile cueing necessary for gait sequence and step length. Discussed step length with patient and recommended taking longer steps with Left LE. Patient stating, "I'm not sure I can." Patient able to take long step on left x1. Continued verbal and tactile cueing needed for safety with gait. Fatigue following ~10'. At end of session, patient returned to recreational room, comfortable, seated in wheelchair at table. Treatment: Gait 13 minutes total. Continue per POC and recommend SNF vs home with 24hr assist at discharge. Thank you. Megan Ch,PT,DPT
--- NOTE | 2020-01-12 12:33 | NUR ---
P- CONFUSED. TEARFUL. DEPRESSED, FLAT AFFECT. PREOCCUPIED ABOUT WHERE HIS IS AND WHY HE CANT SEE HER. I- ASSESS MOOD, ORIENTATION, SI/HI, HALLUCINATIONS, DELUSIONS OR PAIN. FREQUENTLY REORIENT AND PROVIDE REASSURANCE. 1:1 THERAPEUTIC INTERACTION WITH EMOTIONAL SUPPORT AND VENTILATION OF FEELINGS PROVIDED. ENCOURAGE FOOD AND FLUIDS. PROVIDE 1 TO 2 ASSIST WITH ADLS, TOILETING, TRANSFERING, AND CARE DUE TO UNSTEADY GAIT; SEAT CUSHION, HEAL PROTECTORS AND ELBOW PROTECTORS INTACT; DRESSINGS TO WOUNDS CHANGED PER ORDERS; ENCOURAGED TO SHIFT WEIGHT FREQUENTLY IN WHEELCHAIR. PROVIDE MEDS ON TIME WITH EDUCATION ON EACH. R- PATIENT ALERT TO PERSON AND KNOWS THAT HE IS IN A HOSPITAL. ST/LT MEMORY DEFICITS NOTED. PATIENT FREQUENTLY FORGETFUL THAT HE CALLED HIS , WHERE HIS IS, AND WHY SHE CAN NOT VISIT. REORIENTATION EFFECTIVE FOR A SHORT WHILE AND THEN FORGETS. REASSURANCE AND 1:1 THERAPEUTIC INTERVENTION PROVIDED DURING THESE TIMES. PATIENT BECOMES TEARFUL EVEN WHEN TALKING TO ON PHONE. PATIENT STATES "I JUST MISS MY . SHE KNOWS WHAT I LIKE AND I JUST WOULD LIKE TO TALK TO SOMEONE THAT I HAVE STUFF IN COMMON WITH". EMPATHY, 1:1, REASSURANCE EFFECTIVE. PATIENT EATING AND DRINKING ADEQUATELY. 1 TO 2 ASSIST FOR ADLS, TOILETING, TRANSFER AND CARE. MAKES NEEDS KNOWN AND VOICES CONCERNS. DENIES SI/HI, HALLUCINATIONS, DELUSIONS OR PAIN AT THIS TIME. NO S/S OF DISTRESS NOTED. NO DELUSIONAL THOUGHT PROCESS NOTED. PATIENT STATES HIS MOOD IS SAD. REMAINS PREOCCUPIED WITH , INTERVENTIONS EFFECTIVE. MED COMPLIANT WITH NO DIFFICULTIES. P- ASSESS MOOD, ORIENTATION, SI/HI, HALLUCINATIONS, DELUSIONS OR PAIN EVERY SHIFT. 1:1 THERAPEUTIC INTERACTION WITH EMOTIONAL SUPPORT PROVIDED WHEN NECESSARY. PROVIDE REASSURANCE AND REORIENTATION FREQUENTLY. PROVIDE MEDS ON TIME WITH EDUCATION ON EACH PRESCRIBED BY PHYSICIAN. 1 TO 2 ASSIST PROVIDED WITH ADLS, CARE, TOILETING, AND TRANSFERING DUE TO UNSTEADY GAIT; ENCOURAGE TO SHIFT WEIGHT FREQUENTLY. FALLING STAR PROGRAM IN PLACE.
--- NOTE | 2020-01-12 12:43 | NUR ---
OT NOTE Prior to coming to floor spoke with charge nurse Enriqueta and reported that therapy would be coming to the floor to treat this pt. Pt was seen this P.M. 1:1 for 13 minute OT session with PT and nursing staff present for observation only. Upon arrival pt was sitting upright in the w/c in the dining craft. Pt identified by name and and had no complaints at this time. Pt was first taken out to the hallway where he completed sit to stand from chair level with use of hand rail for UE support. Challenged pt's dynamic standing tolerance while standing without any UE support to simulate ADL task, pt was able to tolerate aprox 2 minutes at a time before sitting due to fatigue. Sit to stand then completed from chair level with CGA presenting with slow rise and verbal prompts for proper hand placement for increased I and improved technique. While standing without UE support challenged pt's dynamic standing balance while weight shifting, crossing midline, and reaching over all planes. Pt was able to maintain F+/G- standing balance throughout. While crossing midline to his L side pt stated and it was noted of a L visual deficit, however pt self compensated without any verbal prompts by turning his head/tracking with his R side and looking. Pt then completed AROM to L digits flexion and extension, AAROM L wrist flexion/extension, AAROM L wrist ulnar/radial deviation, and L elbow flexion/extension AROM for 1 X 10 to increase and restore maximum functional use. Pt was left sitting upright in the w/c in the dining craft under [facility] staff supervision. Continue with rec D/C plan to SNF. TE Sarah
--- NOTE | 2020-01-12 12:55 | NUR ---
ADIS BYRNE FROM PODIATRY ON FLOOR TO ASSESS PATIENT.
--- NOTE | 2020-01-12 15:51 | NUR ---
PER ADARSH AT [facility] SR ADVANTAGE PT WAS APPROVED FOR 3 DAYS 01/11-01/13, NRD 01/13 OR 01/14.
--- NOTE | 2020-01-12 15:57 | NUR ---
Shift chart check completed.
--- NOTE | 2020-01-12 16:00 | NUR ---
PRN MOM 30ML PO FOR CONSTIPATION.
--- NOTE | 2020-01-12 16:17 | NUR ---
PRN MOM 30ML PO FOR CONSTIPATION AND NO BOWEL MOVEMENT IN 3 DAYS.
--- NOTE | 2020-01-12 17:40 | NUR ---
PATIENT SIGNED VOLUNTARY CONSULT FOR TREATMENT.
--- NOTE | 2020-01-12 18:52 | NUR ---
PATIENT HAS BECOME INCREASINGLY MORE AGITATED TOWARDS THE EVENING. 1:1 THERAPEUTIC INTERACTION WITH EMOTIONAL SUPPORT AND VENTILATION OF FEELINGS PROVIDED. PATIENT STATING THAT HE DOES NOT THINK THAT HIS CARES ABOUT HIM DUE TO HER NOT COMING TO SEE HIM. WITH REASSURANCE AND REORIENTATION TO THE SITUATION GOING ON WORLDWIDE OF NO VISITORS, PATIENT STATED "HOW CAN THIS STUPID GOVERNMENT JUST STOP LOVED ONES FROM COMING TO VISIT. I AM ALL ALONE. WHAT CAN I TALK TO YOU OR HER ABOUT? YOU DONT KNOW ME AND I DONT KNOW YOU". EMPATHY AND REASSURANCE PROVIDED, SAT AND TALKED TO PATIENT. TRYING TO GET PATIENT ON DIFFERENT SUBJECTS. REMINDING PATIENT THAT WE WERE GOING TO TRY TO CALL HIS AND HE HAS TALKED TO HER FOUR TIMES TODAY. 1:1, REASSURANE, EMPATHY, AND REORIENTATION EFFECTIVE FOR A SHORT WHILE. PATIENT REMAINS IN AN IRRITABLE/DEPRESSED MOOD.
--- NOTE | 2020-01-12 19:59 | NUR ---
Called and notified Dr. Echols regarding blood sugar of 375. Dr. Echols said to medicate according to sliding scale and to recheck in al little while.
[2020-01-12 20:00] VITALS: BP 157/63
--- NOTE | 2020-01-12 21:29 | NUR ---
Called and notified Dr. Ferguson regarding recheck of blood glucose of 425. Dr. Ferguson said to give another 10 Units.
--- NOTE | 2020-01-12 22:41 | NUR ---
Patient alert and oriented to person only with confusion noted. Patient did not know he was in the hospital. Patient pounded on table and yelled "Ines". Reoriented patient about him being in the hospital and patient wanted to know where his is. Told patient that his was probably home and he said "she wouldn't be home if she knew I was here". Patient started to become agitated slightly but then calmed on his own. ST/LT memory deficits noted. No overt s/s of responding to internal stimuli noted at this time. No SI/HI noted at this time. Patient compliant with HS medications without any difficulty. Provided 1:1 for emotional support. Redirected/reoriented when needed. Patient receptive to redirection/reorientation but forgets very quickly. Plan to continue to encourage medication compliance. Also continue to offer emotional support and redirect/reorient when needed/appropriate. Will continue to monitor moods/behaviors. Q 15 minute safety checks continued and maintained. See [facility] flowsheet for further documentation.
--- NOTE | 2020-01-13 00:21 | NUR ---
24 HR chart check completed.
--- NOTE | 2020-01-13 04:53 | NUR ---
Patient slept approx. 8 hours throughout shift. Q 15 minute safety checks continued and maintained.
--- NOTE | 2020-01-13 07:35 | NUR ---
PHYSICAL THERAPY Patient seen this am for therapy visit and was resting semi reclined in activity room Kati chair upon therapist arrival. Patient identified by name / and was joined by OT campaign assistant who was present for observation only this session. Patient voices no new c/o's and transfers sit to stand with CGA x 1. Patient ambulates ACCESS ASSOC/CGA, 10'x 1 to bathroom, then additional 35'x 1, demonstrating bouts of unsteady gait patten, including uneven stride. Patient needed several v/c's to keep his head up with BIG steps, demonstating slight improvement, however very little carryover. Patient also fatigues quickly, requiring several brief, < 10 seconds, standing rest breaks to complete all gait ex this session and returned to Kati chair at table awaiting breakfast. Patient remained with body alarm and B heel protectors, under [facility] staff Supervision. Will continue per POC as tolerated, total treatment time 14 minutes. Homar Calderon, PULVERIZER FEEDER
--- NOTE | 2020-01-13 07:42 | NUR ---
OT NOTE Prior to coming to the floor spoke with charge nurse Enriqueta and reported that therapy was coming to the floor to treat this pt. Pt was seen this A.M. 1:1 for 20 minute OT session with PREMIUM NOTE INTEREST CALCULATOR CLERK and nursing staff present for observation only. Upon arrival pt was sitting reclined in the mireya chair in the dining craft. Pt identified by name and and had no complaints at this time. Pt was taken to his bedroom where he completed sit to stand from chair level with CGA slow rise. Functional mobility was then completed into the bathroom with CGA COLD PRESS LOADER. Throughout pt required verbal prompts for taking bigger steps and L foot advancement. Pt transferred on/off to the standard commode with CGA and use of hand rail for UE support. Clothing management completed with [employer]. Challenged pt's dynamic standing balance needed for increased I and enhanced safety, pt was able to maintain F+ standing balance throughout. Functional mobility was then completed back to the mireya chair with CGA COLD PRESS LOADER. Overall pt was able to tolerate aprox 4 minutes of dynamic standing tolerance before sitting due to fatigue. Pt was left sitting semi reclined in the mireya chair in the dining craft under [facility] staff supervision with body alarm activated for safety. Continue with rec D/C plan to SNF. CLARA Sarah/Nickolas
[2020-01-13 07:53] VITALS: BP 120/60
--- NOTE | 2020-01-13 08:00 | NUR ---
Patient eating in dining room with no c/o discomfort. Respirations easy and regular. Vital signs stable. No overt distress. TAMY RUEDA
--- NOTE | 2020-01-13 08:10 | NUR ---
KINDRA MARCELINO CNP ON UNIT TO ASSESS PATIENT.
--- NOTE | 2020-01-13 10:22 | NUR ---
Patient pleasant with this quality analyst/technical writer this AM. Pt questioned where his was. Oriented pt to place and situation. Pt was tearful as he spoke of his and his want to be with her. Support provided. Redirected pt to conversation about horses and asked pt about horses that he has/had. Pt responded positively to this. Pt displayed short term memory deficits. He admits to a depressed mood and feelings of hopelessness.
--- NOTE | 2020-01-13 15:45 | NUR ---
Shift chart check completed.
--- NOTE | 2020-01-13 15:53 | NUR ---
Treatment Plan meeting was held with Dr. Sweeney, ADRIEL Nance RN, NOTCH GRINDER-S and Development And Housing Director. Plan for discharge next week. Pt. is to return home with family.
--- NOTE | 2020-01-13 17:11 | NUR ---
P: TEARFUL AT TIMES, MISSING AND WANTING TO VIIST. I: ONE ON ONE FOR EMOTIONAL SUPPORT, REDIRECTION/REORIENTATION PROVIDED. R: EFFECTIVE. PATIENT IS ALERT TO PERSON WITH CONFUSION; ABLE TO VOICE NEEDS. LONG/SHORT TERM MEMORY DEFICITS NOTED. MEDICATION COMPLIANT. MOOD IS DEPRESSED, STABLE. NO AGGRESSION OR OUT BURST OBSERVED. DENIES ANY HALLUCINATIONS, DELUSIONS, HI/SI OR PAIN. 1-2 PERSON ASSIST WITH ACTIVITIES OF DAILY LIVING, INCONTINENT OF BOWEL AND BLADDER. SET UP FOR MEALS, INTAKES ARE GOOD WITH ADEQUATE FLUIDS. AMBULATED WITH THERAPY THIS MORNING AND SHORT DISTANCES WITH NURSES. PATIENT IS UP IN WHEELCHAIR. BED BATH PROVIDED. INTERACTIVE WITH STAFF AND OTHER PATIENTS. IMPROVEMENT NOTED. P: CONTINUE TO MONITOR FOR AGGRESSION, MOOD AND VOICES OF SUCIDAL THOUGHTS. CONTINUE TO PROVIDE ONE ON ONE, REDIRECTION AND REORIENTATION NEEDED.
[2020-01-13 19:16] VITALS: BP 136/64
--- NOTE | 2020-01-13 23:34 | NUR ---
P-CONFUSION I-PROVIDE 1:1 FOR EMOTIONAL SUPPORT, REORIENT, REDIRECT, ADMINISTER MEDS, MONITOR SLEEP R-PT IS PLEASANTLY CONFUSED. ALERT TO PERSON ONLY. HAS REMAINED CALM THIS EVENING WITH NO AGITATION, YELLING OUT OR CURSING. CONTINUES TO BE PREOCCUPIED ON HIS WIFES WHERE ABOUTS. UNRECEPTIVE TO REORIENTATION. DID SPEAK TO HIS ON THE PHONE. SET UP FOR SNACK & ATE & DRANK INDEPENEDENTLY. CONTINENT & INCONTINENT OF BLADDER. HS BEDSIDE GLUCOSE 400. COMPLIANT WITH DIRECTIONS WHEN BEING ASSISTED BY STAFF. P-CONTINUE TO MONITOR BEHAVIORS & PROVIDE PHYSICAL ASSISTANCE & EMOTIONAL SUPPORT.
--- NOTE | 2020-01-13 23:46 | NUR ---
24 HR chart check completed.
--- NOTE | 2020-01-14 05:12 | NUR ---
PT HAS SLEPT QUIETLY PAST 2114.
--- NOTE | 2020-01-14 06:20 | NUR ---
AM BEDSIDE GLUCOSE 188
[2020-01-14 07:32] VITALS: BP 137/65
--- NOTE | 2020-01-14 07:45 | NUR ---
Patient eating breakfast in dining room with peers. Respirations easy and regular. Vital signs stable. No overt distress. MADELNY JUAREZ and team on unit to see pt this AM. updated via telephone.
--- NOTE | 2020-01-14 08:10 | NUR ---
PHYSICAL THERAPY Patient seen this am for therapy visit and was sitting in activity room w/c upon therapist arrival. Patient identified by name / and reports no new c/o's at this time. OT legal executive assistant was also present this morning for observation only this session as patient became a little teary eyed speaking of his . Patient easily redirected and performed several sit to stand tranfers at rail in hallway with single handrail support, Min/CGA. Patient needed v/c to improve standing posture secondary to rounded shoulders and forward head posture. Patient ambulated 30'x 1, CGA, single handrail support, demonstrating very unsteady gait pattern, decreased L LE step length and incresed difficulty advancing L foot forward. Patient also required v/c to keep his head up with eyes forward during gait ex and returned to his w/c with increased fatigue. Patient would benefit from SNF to increased LE strength, improve standing activity tolerance and functional mobility to decrease risk of falls. Patient remained in activity room w/c under [facility] staff Supervision. Will continue per POC as tolerated, total treatment time 14 minutes. Homar Calderon, FARMWORKER TURKEY FARM
--- NOTE | 2020-01-14 08:22 | NUR ---
Treatment Plan meeting was held with Dr. Sweeney RN, NUT SHELLER-S and Agency Cashier. Plan for discharge Saturday/Saturday. Pt. will return home with his and [facility].
--- NOTE | 2020-01-14 08:30 | NUR ---
OT NOTE Prior to coming to the floor spoke with charge nurse Fara and reported that therapy was coming to the floor to treat this pt. Pt was seen this A.M. 1:1 for 24 minute OT session with LAY OUT CARPENTER and nursing staff present for observation only. Upon arrival pt was sitting upright in the w/c in the dining craft. Pt identified by name and and had no complaints at this time. Pt was taken out into the hallway where he completed multiple sit to stand transfers from chair level with CGA. Challenged pt's dynamic standing tolerance needed for increased I in self care tasks and functional transfers, pt was able to tolerate aprox 4 minutes at a time before sitting due to fatigue. Also challenged pt's dynamic standing balance while weight shifting, crossing midline, and reaching over all planes pt was able to maintain F+ standing balance throughout. Again while crossing midline to his L side pt would self compensate and turn his head while tracking with the R eye. Then completed AROM to RUE and AAROM to LUE digits, wrist, elbow, and shoulder over all planes of motion for 1 X 10 to increase and restore maximum functional use. Pt was left sitting upright in the w/c with body alarm activated for safety and under [facility] staff supervision. Throughout session pt had two episodes of becoming tearful and asking if his was here, pt was easily redirected to task. Continue with rec D/C plan to SNF. CLARA Sarah/Nickolas
--- NOTE | 2020-01-14 08:55 | NUR ---
Spoke with Elenita, update given.
--- NOTE | 2020-01-14 10:50 | NUR ---
, podiatry resident on unit to see pt at this time.
--- NOTE | 2020-01-14 10:51 | NUR ---
Spoke with pt's Ines to discuss pt's current status and confirm discharge plan. Ines stated that she wanted pt to return home. As conversation continued, however, Ines changed her mind and asked that a referral be made to [facility] in [place]. Ines stated that she knows that he was denied admission there previously but that her PCP had called there last week and was told that pt would be accepted there.
--- NOTE | 2020-01-14 11:41 | NUR ---
Observed pt calling out for his . Went to pt and oriented him to place and situation. Empathized with pt and offered support as pt voiced that he missed his . Pt shared that he is having a difficult time understanding about a virus causing no visitations. Discussed this further with pt.
--- NOTE | 2020-01-14 12:49 | NUR ---
PASRR completed online in [facility]. Requires further review. Faxed supporting Documentation to [facility] for Further Review for Nursing Facility Placement. has requested Referral to [facility]. Left Voice Message for Steffanie Hester in admissions at facility and Faxed Referral to [phone].
--- NOTE | 2020-01-14 14:59 | NUR ---
P- Confusion, poor ST memory recall, mood depressed, pt tearful at times regarding missing his . I- Orientation, mood and behaviors assessed. Assessed pt for SI/HI, intent or plan. Assessed pt for s/s hallucinations, paranoia and/or delusions. Medications administered as per physician's orders. Assistance with ADL care provided as needed. Encouraged pt to attend and participate in [facility] groups and activities. R- Pt is alert and oriented to self only, otherwise confused. Pt stated he was "at the meeting" and believed the year was "'79" this morning. Reorientation provided. Poor ST memory noted. Resps easy and even on room air. Mood is depressed, affect sad/tearful at times. Speech is soft, coherent, able to make needs known without difficulty. No vulgar language as of this time in the shift. Pt denies SI/HI, intent or plan. Pt denies hallucinations, no response to internal stimuli noted. No paranoia or delusions noted. Pt often asks for his , asking "Is there a reason why I have to suffer and be here alone without my ?" Frequent reorientation provided. Explained to pt multiple times the reasoning behind vistiation restrictions re: COVID-19. Pt states "Oh yeah, I think you've told me that before". Pt is med compliant without difficulty. Compliant with hands on care, no aggressive behaviors displayed. No distress noted. P- Plan to continue current treatment, continue to monitor mood and behaviors, provide appropriate reorientation, redirection and 1:1 as needed. Continue to encourage medication compliance as well as group attendance and participation.
[2020-01-14 19:14] VITALS: BP 130/62
--- NOTE | 2020-01-14 21:29 | NUR ---
P-CONFUSION, MEMORY DEFICITS I-PROVIDE 1:1 FOR EMOTIONAL SUPPORT, REORIENT, REDIRECT, ADMINISTER MEDS, MONITOR SLEEP R-PT IS PLEASANTLY CONFUSED WITH NOTICABLE SHORT TERM MEMRORY GAPS. ALERT TO PERSON ONLY. HAS REMAINED CALM THIS EVENING WITH NO AGITATION, YELLING OUT OR CURSING. CONTINUES TO BE PREOCCUPIED ON HIS WIFES WHERE ABOUTS. UNRECEPTIVE TO REORIENTATION. DID SPEAK TO HIS ON THE PHONE & DOES APPEAR TO BE SAD & BRIEFLY TEARFUL WHEN SPEAKING TO HER. SET UP FOR SNACK & ATE & DRANK INDEPENDENTLY. CONTINENT & INCONTINENT OF BLADDER. HS BEDSIDE GLUCOSE 287. MORE COMPLIANT WITH DIRECTIONS WHEN BEING ASSISTED BY STAFF. P-CONTINUE TO MONITOR BEHAVIORS & PROVIDE PHYSICAL ASSISTANCE & EMOTIONAL SUPPORT.
--- NOTE | 2020-01-14 22:31 | NUR ---
24 HR chart check completed.
--- NOTE | 2020-01-15 05:14 | NUR ---
PT HAS SLEPT QUIETLY PAST 2144. APPX 7.5 HOURS OF SLEEP
--- NOTE | 2020-01-15 05:37 | NUR ---
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 Diagnosis: INTERMITTANT EXPLOSIVE DISORDER Doc Score: 16,AT RISK WOUND DESCRIPTIONS: Wound Number: 1 Location of the wound: left elbow Type of wound: skin tear Thickness: Partial Size: 4.0cm x 0.8cm x <0.1cm Tunneling: none Undermining: none Sinus Tract: none Presence of Exudate: none Amount: None Color: Dark red Odor: None Periwound Skin Appearance: Erythema Wound edges: approximated Pain (associated with wound): none at time of assessment How does patient state this happened? pt unable to stated how this happened Wound Number: 2 Left 2nd toe pink and blanchable in color. No open areas at time of assessment. No drainage noted at time of assessment. Wound Number: 3 Left 4th toe pink and blanchable in color. No open areas at time of assessment. No drainage noted at time of assessment. Wound Number: 4 Left foot 3rd toe toe pink and blanchable in color. No open areas at time of assessment. No drainage noted at time of assessment. Wound Number: 5 Left elbow ecchymotic area measures 14.0cm x 9.0cm x <0.1cm. No drainage noted at time of assessment. No pain noted at time of assessment. Pt unable to state how this happened Wound Number: 6 Right hand pink and blanchable in color. No open areas at time of assessment. No drainage noted at time of assessment. Wound Number: 7 Left 2nd toe pink and blanchable in color. No open areas at time of assessment. No drainage noted at time of assessment. Wound Number: 8 Location of the wound: left top of foot Type of wound: scab Thickness: Partial Size: 0.5cm x 0.4cm x <0.1cm Tunneling: none Undermining: none Sinus Tract: none Presence of Exudate: none Amount: None Color: Red Odor: None Periwound Skin Appearance: Normal Wound edges: approximated Pain (associated with wound): none at time of assessment How does patient state this happened? pt unable to state how this happened Wound Number: 9 Location of the wound: right top of foot Type of wound: scab Thickness: Partial Size: 0.2cm x 0.2cm x <0.1cm Tunneling: none Undermining: none Sinus Tract: none Presence of Exudate: none Amount: None Color: Red Odor: None Periwound Skin Appearance: Normal Wound edges: approximated Pain (associated with wound): none at time of assessment How does patient state this happened? pt unable to state how this happened Wound Number: 10 Right 4th toe pink and blanchable in color. No open areas at time of assessment. No drainage noted at time of assessment. Wound Number: 11 Location of the wound: left knee Type of wound: abrasion Thickness: Partial Size: 1.1cm x 2.2cm x 0.1cm Tunneling: none Undermining: none Sinus Tract: none Presence of Exudate: none Amount: None Color: Red Odor: None Periwound Skin Appearance: Normal Wound edges: approximated Pain (associated with wound): none at time of assessment How does patient state this happened? pt unable to state how this happened Wound Number: 12 Location of the wound: right knee Type of wound: abrasion Thickness: Partial Size: 1.0cm x 1.5cm x 0.1cm Tunneling: none Undermining: none Sinus Tract: none Presence of Exudate: none Amount: None Color: Red Odor: None Periwound Skin Appearance: Normal Wound edges: approximated Pain (associated with wound): none at time of assessment How does patient state this happened? pt unable to state how this happened Periarea pink and blanchable at time of assessment. No odor noted at time of assessment. Buttocks is red and blanchable at time of assessment. No open areas noted at time of assessment. Patient incontient of urine at time of assessment. Pericare provided by this RN as well as RN caring for patient Valeria. Surface the patient is resting on: Proform SKIN PREVENTION RECOMMENDATION: 1. Pressure redistribution support surface as appropriate 2. Elevate heels 3. Remove boots/TEDS every shift and reapply 4. Head of bed 30 degrees as tolerated 5. Assess nutrition and hydration 6. Manage moisture 7. Avoid the use of containment devices while in bed 8. Use absorptive products on surfaces limit layers of linens on bed 9. Turn and reposition every 1-2 hours in bed and every 1 hour in chair as tolerated 10. Weight shifts every 15 minutes while up in chair 11. Offloading with pillows or device to keep heels elevated off bed 12. Monitor skin at least every shift 13. Inspect under medical devices twice a day WOUND TREATMENT RECOMMENDATIONS: Continue wheelchair cushion when oob. Continue heel raiser pro boots to bilateral feet while in bed. Continue Elbow protectors to bilateral elbows at all times expect for hygiene. Continue hydraguard to buttocks Clarify partial thickness guidelines: Cleanse right knee and left knee with nss and apply sureprep around the wound hydrogel to wound bed and cover with optifoam gentle. D/C DTI guidelines to right 4th toe, left 2nd toe medial, left 2nd toe lateral, left 4th toe, and left 3rd toe Continue to follow with podiatry and vascular upon discharge.
--- NOTE | 2020-01-15 06:43 | NUR ---
AM BEDSIDE GLUCOSE 222
[2020-01-15 07:28] VITALS: BP 119/67
--- NOTE | 2020-01-15 07:35 | NUR ---
Patient resting quietly with no c/o discomfort. Respirations easy and regular. Vital signs stable. No overt distress. MADELYN JUAREZ
--- NOTE | 2020-01-15 08:15 | NUR ---
Treatment Plan meeting was held with ADRIEL Nance RN, COOLER TENDER-S and Coat Cutter. Plan for discharge Sat/. Received Call from [facility] and they have declined referral, they are unable to meet patient needs.
--- NOTE | 2020-01-15 08:48 | NUR ---
Vistaril dose decreased to 25mg PO TID as per Yared PHROXIP-BC.
--- NOTE | 2020-01-15 09:10 | NUR ---
PHYSICAL THERAPY Patient seen this am for therapy visit and was sitting up in his w/c following breakfast at table in activity room upon therapist arrival. Patient identified by name / and was very pleasant this morning. OT project administrative assistant was also present for observation only this session as patient instructed on, then performed seated B LE therex, all planes, x 15 reps each to increase LE strength. Patient demonstrated increased L LE weakness during LAQ, requiring v/c to improve full AROM. Patient then transfers sit to stand MIN A and ambulates at rail, Min/CGA, single handrail support, 25' x 2, demonstrating very slow, unsteady gait pattern. Patient also fatigues quickly needing seated rest break between gait trials and returned to his w/c in activity room following treatment. Patient remained under U staff Supervision and will continue per POC asa tolerated. Total treatment time 23 minutes. Homar Calderon, WELT SOLE LAYER
--- NOTE | 2020-01-15 09:30 | NUR ---
OT NOTE Prior to coming to the floor spoke with charge nurse Fara and reported that therapy was coming to the floor to treat this pt. Pt was seen this A.M. 1:1 for 25 minute OT session with PLATE MAKER and nursing staff present for observation only. Upon arrival pt was sitting upright in the w/c in the dining craft. Pt identified by name and and had no complaints at this time. Pt donned B socks with SBA while seated. Pt was then taken out into the hallway where he completed multiple sit to stand transfers from chair level with CGA. Challenged pt's static standing tolerance while standing with UE support and pt was able to tolerate aprox 4 minutes at a time and without UE support pt was able to tolerate aprox 2 minutes at a time before sitting due to fatigue. Challenged pt's dynamic standing balance while weight shifting, crossing midline, and reaching over all planes pt was able to maintain G-/F+ standing balance. Pt was then taken back into the dining cratf where he completed AROM to his RUE and AAROM to LUE wrists, digits, elbows, and shoulder joints over all planes for 1 X 10. Pt was left sitting upright in the w/c with body alarm activated for safety and under U staff supervision. Continue with rec D/C plan to SNF. TE Sarah
--- NOTE | 2020-01-15 11:03 | NUR ---
CONCURRENT REVIEW CALLED TO ADARSH AT [phone] DUE TO PROBLEMS WITH HER FAX MACHINE. LEFT INFORMATION ON CONFIDENTIAL VOICE MAIL. WILL WAIT FOR RETURN CALL.
--- NOTE | 2020-01-15 11:40 | NUR ---
Attempted to phone pt's Ines to inform her that pt was denied admittance to [facility]. However, Ines did not answer and her voicemail was full. Will attempt again at a different time.
--- NOTE | 2020-01-15 15:05 | NUR ---
PHYSICAL THERAPY CO-SIGN I approve of the Physical Therapy notes written above. REMBERTO TAY PT, DPT
--- NOTE | 2020-01-15 15:16 | NUR ---
OCCUPATIONAL THERAPY CO-SIGN I approve of the Occupational Therapy notes written above. Christie Berkowitz, OTR/L
--- NOTE | 2020-01-15 15:46 | NUR ---
HARRISON ALTAMIRANO FROM [facility]. IP APPORVED 01/14-01/16 WITH NEXT REVIEW DATE 01/17.
--- NOTE | 2020-01-15 18:15 | NUR ---
P- CONFUSION, VERY POOR ST MEMORY RECALL, IRRITABILITY, DIFFICULT TO REDIRECT I- ORIENTATION, MOOD AND BEHAVIORS ASSESSED. ASSESSED PT FOR SI/HI, INTENT OR PLAN. ASSESSED PT FOR S/S HALLUCINATIONS, PARANOIA AND/OR DELUSIONS. MEDICATIONS ADMINISTERED PER PHYSICIAN'S ORDERS. ASSISTANCE WITH ADL CARE PROVIDED NEEDED. ENCOURAGED PT TO ATTEND AND PARTICIPATE IN [facility] GROUPS AND ACTIVITIES. R- PT IS ALERT AND ORIENTED TO PERSON ONLY, OTHERWISE CONFUSED. VERY POOR ST MEMORY RECALL NOTED. PT REQUIRES FREQUENT REORIENTATION WHICH IS ONLY EFFECTIVE FOR A FEW MINUTES BEFORE PT ASKS THE SAME QUESTIONS AGAIN, FREQUENTLY ASKING FOR HIS . MULTIPLE ATTEMPTS TO REORIENT PT AND PROVIDE REASONING FOR RESTRICTED VISITATION RE: COVID-19 ARE MET WITH INCREASED IRRITABILITY, PT YELLING OUT VULGARITIES AT TIMES. NO PHYSICAL AGGRESSION DISPLAYED THIS SHIFT. MOOD LABILE. PT DENIES SI/HI, INTENT OR PLAN. PT DENIES HALLUCINATIONS, NO RESPONSE TO INTERNAL STIMULI NOTED. NO PARANOIA OR DELUSIONS NOTED. MED COMPLIANT WITHOUT DIFFICULTY. COMPLIANT WITH HANDS ON CARE. P- PLAN TO CONTINUE CURRENT TREATMENT, CONTINUE TO MONITOR MOOD AND BEHAVIORS, PROVIDE APPROPRIATE REORIENTATION, REDIRECTION AND 1:1 NEEDED. CONTINUE TO ENCOURAGE MEDICATION COMPLIANCE WELL GROUP ATTENDANCE AND PARTICIPATION.
--- NOTE | 2020-01-15 18:38 | NUR ---
PT CONTINUALLY YELLING OUT FOR , THIS RN AND 2ND RN ATTEMPTING MULTIPLE TIMES TO REDIRECT/REORIENT PT WITHOUT SUCCESS. ALL NONPHARMALOGICAL INTERVENTIONS FOR CALMING INEFFECTIVE. PT BEHAVIORS CONTINUE TO ESCALATE, PT YELLING OUT VULGARITIES AND POUNDING FISTS ON TABLE/CHAIR. [facility]- NOTIFIED. STATES TO GIVE PRN ATIVAN 1MG AT THIS TIME FOR INCREASED ANXIETY/AGITATION. STATES TO INCREASE VISTARIL DOSE TO 50MG PO TID. WITNESSED BY 2ND RN BRAYAN
--- NOTE | 2020-01-15 19:42 | NUR ---
24 HR chart check completed.
[2020-01-15 19:50] VITALS: BP 122/72
--- NOTE | 2020-01-15 21:41 | NUR ---
P-RESTLESS, AGITATION, CONFUSION, VERBAL AGGRESSION I-PROVIDE 1:1 FOR EMOTIONAL SUPPORT, REORIENT, REDIRECT, ADMINISTER MEDS, MONITOR SLEEP R-PT IRRITABLE & EASILY AGITATED. YELLS OUT FREQUENTLY FOR HIS . INCREASED AGITATION WHEN REORIENTED WITH USE OF PROFANITY & POUNDING FISTS ON CHAIR & TABLE. ATIVAN MINIMALLY EFFECTIVE. ALERT TO PERSON ONLY. SHORT & CORRECTION MEMORY DEFICITS. INITAILLY THREW A CUP OF WATER ON THE FLOOR. ATE SNACK INDEPENDENTLY. INCONTINENT OF BLADDER. HS BEDSIDE GLUCOSE 378. TOOK HS MEDICATIONS CRUSHED & MIXED IN APPLESAUCE. P-CONTINUE TO MONITOR BEHAVIORS & PROVIDE PHYSICAL ASSISTANCE & EMOTIONAL SUPPORT.
--- NOTE | 2020-01-16 04:13 | NUR ---
PT HAS SLEPT QUIETLY PAST 2214
--- NOTE | 2020-01-16 06:18 | NUR ---
AM BEDSIDE GLUCOSE 166
[2020-01-16 07:43] VITALS: BP 141/67
--- NOTE | 2020-01-16 08:24 | NUR ---
DR MOORE ON UNIT TO ASSESS PT, UPDATE PROVIDED.
--- NOTE | 2020-01-16 09:18 | NUR ---
PT CALLED AND WAS ASKING WHY COLLECTION CORRESPONDENT CALLED HER YESTERDAY, ADVISED PER NOTES THAT THE COLLECTION CORRESPONDENT WANTED TO ADVISE HER THAT THE PT WAS DENIED ACCEPTANCE TO [facility] AT [place]. WAS WANTING AN EXPLANATION AND ADVISED THAT SHE WOULD NEED TO SPEAK WITH THEW COLLECTION CORRESPONDENT ON SATURDAY.
--- NOTE | 2020-01-16 13:46 | NUR ---
P: PT YELLING OUT, CURSING AT STAFF, THREATENING TO HIT STAFF, POUNDING ON BED RAILS, ATTEMPTING TO CLIMB OUT OF BED I: PROVIDED RE-ORIENTATION, PROVIDED EMOTIONAL SUPPORT AND 1:l FOR PT TO VOICE FEELINGS, OFFERED SNACK, TOILETED R: PT ALERT TO PERSON ONLY, CONTINUES WITH ABOVE BEHAVIORS. PT STRIKING OUT AT STAFF. P: ATTEMPTED TO ADMINISTER PO ATIVAN, PT REFUSED STATING "YOU CAN GO AHEAD AND GIVE ME SHOUT. PT MEDICATED WITH IM ATIVAN 1 MG PO PRN PER ORDERS. STAFF WILL CONTINUE PROVIDE EMOTIONAL SUPPORT AND 1:1 FOR PT TO VOICE FEELINGS, ENCOURAGE MED COMPLIANCE, MONITOR PT BEHAVIORS ON Q15 MIN SAFETY CHECKS.
--- NOTE | 2020-01-16 15:06 | NUR ---
ATIVAN MILDLY EFFECTIVE, PT CONTINUES TO YELL OUT INTERMITTENTLY.
[2020-01-16 20:00] VITALS: BP 148/67
--- NOTE | 2020-01-16 21:36 | NUR ---
Patient alert and oriented to person only with confusion noted. Patient became agitated slightly and was slightly verbally aggressive. Patient calmed down on his own. ST/LT memory deficits noted. No overt s/s of responding to internal stimuli noted at this time. No SI/HI noted at this time. Patient compliant with HS medications without any difficulty. Provided 1:1 for emotional support. Redirected/reoriented when needed. Patient receptive to redirection/reorientation but forgets very quickly. Plan to continue to encourage medication compliance. Also continue to offer emotional support and redirect/reorient when needed/appropriate. Will continue to monitor moods/behaviors. Q 15 minute safety checks continued and maintained. See [facility] flowsheet for further documentation.
--- NOTE | 2020-01-17 00:21 | NUR ---
24 HR chart check completed.
--- NOTE | 2020-01-17 05:24 | NUR ---
Patient slept approx. 8 hours of sleep throughout shift. Q 15 minute safety checks continued and maintained.
[2020-01-17 07:07] VITALS: BP 146/68
--- NOTE | 2020-01-17 07:40 | NUR ---
and team on unit to see pt at this time, update given. Yared [facility]- saw pt this am, update given.
--- NOTE | 2020-01-17 08:09 | NUR ---
Patient in dining room with peers. Respirations easy and regular. Vital signs stable. No overt distress. TAMY RUEDA
--- NOTE | 2020-01-17 10:15 | NUR ---
Recieved call from pt's Elenita, updated on overnight progress and med changes. verbalizes understanding. States she got a call stating pt was denied at [place]. Elenita states she would like to speak with social organization professor re: possibly referring pt to [facility] [facility] on [address] in [place]. states is leaning toward placing pt since she is unable to afford to pay someone to help her care for him in the home 29/04. Will pass along in report for Saturday.
--- NOTE | 2020-01-17 11:15 | NUR ---
Pt showered, shaved and oral care provided at this time. Pt compliant with hands on care and pleasant.
--- NOTE | 2020-01-17 15:49 | NUR ---
P- Confusion, very poor ST memory recall, labile mood, restless, fixated on his belief that is is cheating on him, pt becomes easily agitated when staff attempts to reorient or redirect. I- Orientation, mood and behaviors assessed. Assessed pt for SI/HI, intent or plan. Assessed pt for s/s hallucinations, paranoia and/or delusions. Medications administered as per physician's orders. Assistance with ADL care provided as needed. R- Pt is alert and oriented to self only, otherwise confused. Pt states the year as "1972". Not oriented to place, time or situation. Resps easy and even on room air. Very poor ST memory recall noted. Pt denies SI/HI, intent or plan. No evidence of hallucinations noted. Pt mood is labile, pt very pleasant and cooperative this AM, this nurse was able to shower pt x1 staff assist only, pt was calm, cooperative, conversed appropraitely with this RN. After shower pt was taken to dining room for lunch. After eating lunch pt began to yell out for his , attempts to reorient/redirect pt ineffective. Pt becoming increasingly restless, irritable and agitated. Pt states "I'm not in the [facility]. I don't know what this is but it's not a hospital. I need my . Why can't my be with me?" Attempted to explain to pt reason for restricted vistiation re: COVID-19 outbreak. Pt states "oh that [facility] virus. It's only killed one jean carlos and that's because he wanted it to". Pt then began speaking about his belief that is isn't here to see him because she's out with other men. Attempts to redirect/calm pt are ineffective at this time and are only met with increasing levels of agitation, pt using frequent vulgarities and pounding on things with his fists. Unable to calm pt with multiple nonpharmalogical measures. PRN Ativan 1mg PO given at 1443 for increased anxiety/agitation. Pt calm for a short time but is once again exhibiting the same behaviors. Pt in quiet room at this time for de-stimulation with close staff supervision for safety. P- Plan to continue current treatment, continue to monitor mood and behaviors, provide appropriate reorientation, redirection and 1:1 as needed. Continue to encourage medication compliance as well as group attendance and participation.
--- NOTE | 2020-01-17 17:51 | NUR ---
PRN MOM 30ml PO given at this time for relief of constipation. +BSx4. Abd soft non tender. Pt denies pain/discomfort. Will monitor for effect.
[2020-01-17 20:00] VITALS: BP 118/70
--- NOTE | 2020-01-17 21:23 | NUR ---
Patient alert and oriented to person only with confusion noted. Patient became agitated slightly and was verbally aggressive. Patient calmed down on his own after assisting patient to bed. ST/LT memory deficits noted. No overt s/s of responding to internal stimuli noted at this time. No SI/HI noted at this time. Patient compliant with HS medications without any difficulty. Provided 1:1 for emotional support. Redirected/reoriented when needed. Patient receptive to redirection/reorientation but forgets very quickly. Plan to continue to encourage medication compliance. Also continue to offer emotional support and redirect/reorient when needed/appropriate. Will continue to monitor moods/behaviors. Q 15 minute safety checks continued and maintained. See [facility] flowsheet for further documentation.
--- NOTE | 2020-01-18 02:12 | NUR ---
24 HR chart check completed.
--- NOTE | 2020-01-18 05:19 | NUR ---
Patient slept approx. 8 hours throughout shift. Q 15 minute safety checks continued and maintained.
[2020-01-18 07:30] VITALS: BP 137/64
--- NOTE | 2020-01-18 08:05 | NUR ---
PHYSICAL THERAPY Patient seen this am for therapy visit and was sitting up in activity room Kati chair upon therapist arrival. Patient identified by name / and presented with B heel protectors, reporting no new c/o's. OT perioperative assistant was also present for observation this session as patient transfers sit to welding machine operator [facility] for gait training ex. Patient ambulates BILLING ASSISTANT/MIN, use of single handrail support, while demonstating increased difficulty advancing L LE. Patient also demonstrates bouts of "festinating" gait pattern, requiring multiple v/c's to stop / start sequence to temporarily correct. Patient has habit of continuos looking down posture and performed standing marching at [facility], demonstrating difficulty picking up his feet. Patient total gait this session 10'x 1, then 15'x 1. Patient returned to his Kati chair in activity room with B heel protectors and body alarm for safety, remaining under [facility] staff Supervision. Will continue per POC as tolerated, total treatment time 18 minutes. Homar Calderon, STONEMASON SUPERVISOR
--- NOTE | 2020-01-18 08:30 | NUR ---
OT NOTE Prior to coming to the floor spoke with charge nurse Abby and reported that therapy was coming to the floor to treat this pt. Pt was seen this A.M. 1:1 for 25 minute OT session with FIELD MARKETING MANAGER and nursing staff present for observation only. Upon arrival pt was sitting upright in the mireya chair in the dining craft. Pt identified by name and and had no complaints at this time. Pt was taken out to the hallway where he completed sit to stand from chair level with CGA. Challenged pt's dynamic standing tolerance needed for increased I in self care tasks and functional transfers, pt was able to tolerate aprox 4 minutes at a time before sitting due to fatigue. Then challenged pt's dynamic standing balance while weight shifting, crossing midline, and reaching over all planes. Pt was able to maintain F- standing balance this session. Pt was then taken into his bedroom where he completed standing pivot from the chair to the EOB with Solis. Due to pt's pants being wet and soiled pt doffed and donned new pants with modA. Standing pivot then completed back to the mireya chair with Solis. Pt was left sitting semi reclined in the mireya chair in the dining craft under [facility] staff supervision with body alarm activated for safety. Continue with rec D/C plan to SNF. CLARA Sarah/Nickolas
--- NOTE | 2020-01-18 08:36 | NUR ---
Patient in dining area with peers. Respirations easy and regular. Vital signs stable. No overt distress. TAMY RUEDA
--- NOTE | 2020-01-18 09:38 | NUR ---
Spoke with Anna at [facility]. No beds Available in Memory Care Unit at this time. [phone].
--- NOTE | 2020-01-18 10:38 | NUR ---
PT BECOMING INCREASINGLY ANXIOUS AND AGITATED YELLING OUT FOR HIS , CURSING AT STAFF AND RESTLESS. ATTEMPTED TO PROVIDE EMOTIONAL SUPPORT AND 1:l FOR PT TO VOICE FEELINGS, PT STATED "ITS NOT GOING TO HELP UNLESS MY IS HERE, WHY CAN'T SHE COME HERE?" STAFF ATTEMPTED TO EXPLAIN THE SITUATION, PT CONTINUES TO YELL OUT AND CURSE. SPOKE WITH DR LEIJA REGARDING PT STARTING NEW ORDER FOR SEROQUEL AT [address] LEIJA IT IS OK TO GIVE SEROQUEL NOW.
--- NOTE | 2020-01-18 11:07 | NUR ---
Referral Faxed to [facility] [phone].
--- NOTE | 2020-01-18 11:28 | NUR ---
Spoke with pt's Ines this AM to discuss discharge options. Ines stated that she is aware that pt will not be accepted to [facility]. Informed her that [facility], which Ines had provided name to nursing over the weekend, was contacted and has no beds available. Ines then stated that she would be open to any NF in the [facility] or [facility]. Provided this information to senior media planner.
--- NOTE | 2020-01-18 12:48 | NUR ---
DR MOORE ON UNIT TO ASSESS PT, ADVISED THAT PT HAS NOT HAD A BM IN 6DAYS AND HAS RECEIVED MORE THAN 1 DOSE OF MILK OF MAG. PER DR MOORE, HE WILL ORDER SOMETHING.
--- NOTE | 2020-01-18 13:26 | NUR ---
Received Call from Amanda At [facility], They are unable to accomodate patient needs and have declined referral.
--- NOTE | 2020-01-18 15:38 | NUR ---
PM GROUP PT ATTENDED AFTERNOON GROUP THERAPY AND PARTICIPATED BY USING THE TANGLE THERAPY. PT WAS CALM AND PLEASANTLY CONFUSED. PT EXHIBITED NO AGITATION OR AGGRESSION WHILE IN GROUP.
--- NOTE | 2020-01-18 15:50 | NUR ---
CONTINUED REVIEW CALL TO CONFIDENTIAL VOICE MAIL OF ADARSH. WAITING FOR RETURN CALL WITH DECISION OF STAY.
--- NOTE | 2020-01-18 15:54 | NUR ---
RECEIVED A CALL FROM ADARSH RAE APPROVED 01/17-01/19 WITH NRD ON 01/19 IF NOT DISCHARGING BY 01/20.
--- NOTE | 2020-01-18 17:03 | NUR ---
PT YELLING OUT "PERFECTO, PERFECTO, WHERE ARE YOU?". STAFF PROVIDED EMOTIONAL SUPPORT AND 1:1 FOR PT TO VOICE FEELINGS, PROVIDED LOW STIMULATION ENVIRONEMENT FOR PT TO CALM. PT CONTINUES TO YELL OUT AT THIS TIME, WILL CONTINUE TO MONITOR PT BEHAVIORS.
--- NOTE | 2020-01-18 17:12 | NUR ---
PT CONTINUES TO YELL OUT, POUNDING ON TABLE, ATTEMPTED TO THROW DINNER TRAY AT THIS NURSE. PT RESTLESS AN ANXIOUS. STAFF PROVIDED EMOTIONAL SUPPORT AND 1:1 FOR PT TO VOICE FEELINGS, PROVIDED LOW STIMULATION ENVIRONMENT FOR PT TO CALM. ALL INTERVETIONS INEFFECTIVE, PT MEDICATED WITH ATIVAN 1 MG PO PRN PER ORDERS. WILL CONTINUE TO MONITOR.
--- NOTE | 2020-01-18 18:35 | NUR ---
ATIVAN MINIMALLY EFFECTIVE, PT WILL YELL OUT INTERMITTENTLY.
[2020-01-18 19:09] VITALS: BP 118/68
--- NOTE | 2020-01-18 21:43 | NUR ---
P-MILD AGITATION, CONFUSION I-PROVIDE 1:1 FOR EMOTIONAL SUPPORT, REORIENT, REDIRECT, ADMINISTER MEDS, MONITOR SLEEP R-PT IRRITABLE WITH MILD AGITATION. HAS YELLED OUT FOR PERFECTO A FEW TIMES. ATIVAN GIVEN AT END OF DAYLIGHT SHIFT HAS BEEN EFFECTIVE & PT HAS CALMED DOWN. DURING VERBAL INTERACTION, PT IS ALERT TO PERSON ONLY. SHORT & GROUP HOME MEMORY DEFICITS. PLEASANTLY INTERACTS WITH RN WITH NO YELLING DURING CONVERSATION. ATE SNACK INDEPENDENTLY. INCONTINENT OF BLADDER. NO BM THUS FAR BUT PT HAS BEEN PASSING ALOT OF FLATUS. HS BEDSIDE GLUCOSE 219. TOOK HS MEDICATIONS CRUSHED & MIXED IN APPLESAUCE. P-CONTINUE TO MONITOR BEHAVIORS & PROVIDE PHYSICAL ASSISTANCE & EMOTIONAL SUPPORT.
--- NOTE | 2020-01-19 01:24 | NUR ---
24 HR chart check completed.
--- NOTE | 2020-01-19 05:39 | NUR ---
PT HAS SLEPT PAST 2100 WITH A BRIEF AWAKENING. HE YELLED OUT BRIEFLY FOR PERFECTO. INCONTINENT OF URINE. ASSISTED WITH HYGIENE & RETURNED TO SLEEP. HAS SLEPT APPX. 8 HOURS
--- NOTE | 2020-01-19 05:47 | NUR ---
PT HAS HAD NO RESULTS WITH MAG CITRATE. BOWEL SOUNDS HYPERACTIVE & PRESENT X ALL 4 QUADRANTS. PASSING FLATUS.
--- NOTE | 2020-01-19 06:35 | NUR ---
AM BEDSIDE GLUCOSE 203
[2020-01-19 07:30] VITALS: BP 139/68
--- NOTE | 2020-01-19 07:47 | NUR ---
Patient resting quietly with no c/o discomfort. Respirations easy and regular. Vital signs stable. No overt distress. ZIA MCKEON
--- NOTE | 2020-01-19 08:10 | NUR ---
PHYSICAL THERAPY Patient seen this am for therapy visit and was just finishing breakfast in activity room Kati chair upon therapist arrival. Patient identified by name / and was a litle tearful speaking of missing his . OT visitor services information assistant was present for observation only this session as patient was easily redirected with focus on him getting better and walking again. Patient performed several sit to stand transfers at rail in [facility], [facility], tolerating appprox 5 minutes static stand, demonstrating improved upright posture. Patient reviewed difficulties he had yesterday with L LE foot advance and educated on new ex to improve step sequence. Patient instructed on then performed L LE step out / back ex to promote increased L step length with full weight bearing with emphasis on proper foot placement, x 10 reps. Patient demonstrated increased difficulty stepping back and again with marching ex to cook pickled meat L foot. Patient also fatigues quickly and needed seated rest break to complete all standing ex this session. Patient returned to his Kati chair in activity room with body alarm and B heel protectors, while remaining under [facility] staff Supervision. Will continue per POC as tolerated, total treatment time 16 minutes. Homar Calderon, TECHNICAL EDUCATION TEACHER
--- NOTE | 2020-01-19 08:33 | NUR ---
OT NOTE Prior to coming to floor spoke with Anna and reported that therapy was coming to the floor to treat this pt. Pt was seen this A.M. 1:1 for 23 minute OT session with REPLENISHMENT BUYER and nursing staff present for observation only. Upon arrival pt was supine in bed. Pt identified by name and and had no complaints at this time. Pt completed AA/PROM to L wrist, digits, elbow, and shoulder and AROM to R wrist, digits, elbow, and shoulder over all planes of motion for 1 X 10 to increase and restore maximum functional use. Pt was then taken out to the hallway where he completed multiple sit to stand transfers from chair level with CGA. Challenged pt's static standing tolerance needed for increased I in self care tasks and functional transfers, pt was able to tolerate aprox 5 minutes at a time before sitting due to fatigue. Pt was left sitting upright in the mireya chair in the [facility] under [facility] staff supervision, body alarm activated for safety, and lap tray in place. Continue with rec D/C plan to SNF. CLARA Sarah/Nickolas
--- NOTE | 2020-01-19 09:09 | NUR ---
DR MOORE AND TEAM ON UNIT TO ASSESS PT, UPDATE PROVIDED RE: NO BM X 7DAYS AND NO RESULTS OF X1 DOSES OF MAG CITRATE YESTERDAY. PER THEY WILL PUT IN NEW ORDERS.
--- NOTE | 2020-01-19 09:45 | NUR ---
Referral faxed to [facility] Attn: Stacy [phone]
--- NOTE | 2020-01-19 10:25 | NUR ---
MESSAGE LEFT FOR DR BALLESTEROS TO RETURN CALL.
--- NOTE | 2020-01-19 10:31 | NUR ---
SPOKE WITH DR BALLESTEROS AND ADVISED THAT PT HAD A XXXL BOWEL MOVEMENT PER DR BALLESTEROS D/C LACTULOSE AND HE WILL PUT IN FURTHER ORDERS.
--- NOTE | 2020-01-19 11:27 | NUR ---
Referral faxed to the [facility] at [facility] per Request. [phone].
--- NOTE | 2020-01-19 11:47 | NUR ---
AM GROUP PT ATTENDED MORNING GROUP THERAPY AND PARTICIPATED BY USING THE TANGLE THERAPY AND SOCIALIZING. PT WAS CALM AND CONTENT. PT EXHIBITED NO ADVERSE BEHAVIORS WHILE IN GROUP.
--- NOTE | 2020-01-19 14:51 | NUR ---
Harry Still Declined Referral due to "Pt. insurance is out of Network. Benefits would be 25% of Total Stay with a $10,000.00 Deductible and Only $3493.06 was met". Pt. is also nearing end of SNF Days.
--- NOTE | 2020-01-19 15:24 | NUR ---
Referral faxed to [facility] [phone]. Left Message for Mily Marsh in [phone]. Spoke with Stacy Lee at [facility] and she advised that they are out of Network for Patient but she was trying for one time agreement with his insurance.
--- NOTE | 2020-01-19 15:33 | NUR ---
PM GROUP PT DID NOT ATTEND AFTERNOON GROUP THERAPY. PT WAS IN BED RESTING.
--- NOTE | 2020-01-19 15:42 | NUR ---
Shift chart check completed.
--- NOTE | 2020-01-19 17:43 | NUR ---
P: PT IRRITABLE, RESTLESS AND AGITATED THIS AM WITH STAFF. PT REFUSED BREAKFAST AND DINNER. I: PROVIDE EMOTIONAL SUPPORT AND 1:1 FOR PT TO VOICE FEELINGS, ENCOURAGE PO INTAKE, OFFER DIVERSIONAL ACTIVITIES R: PT ALERT TO PERSON ONLY, CONFUSION AND SHORT TERM MEMORY DEFICITS NOTED PER PT BASELINE. PT MOOD REMAINS IRRITABLE AT TIMES, RESTLESSNESS AND AGITATION ARE INTERMITTENT. PT CONTINUES TO REFUSE MEALS AT TIMES. PT REQUIRES 2 STAFF ASSIST FOR TRANSFERS AND CARE. PT CONTINENT OF BOWEL AND BLADDER, EPISODES OF INCONTINENCE NOTED, CARE PROVIDED NEEDED. P: MONITOR PT BEHAVIORS ON Q15 MIN SAFETY CHECKS, ENCOURAGE MED COMPLAINCE, ENCOURAGE PO INTAKE, CONTINUE TO OFFER DIVERSIONAL ACTIVITIES, PROVIDE EMOTIONAL SUPPORT AND 1:1 FOR PT TO VOICE FEELINGS.
[2020-01-19 19:00] VITALS: BP 132/87
--- NOTE | 2020-01-19 19:44 | NUR ---
24 HR chart check completed.
--- NOTE | 2020-01-19 21:46 | NUR ---
P-CONFUSION, RESTLESS I-PROVIDE 1:1 FOR EMOTIONAL SUPPORT, REORIENT, REDIRECT, ADMINISTER MEDS, MONITOR SLEEP R-MILD RESTLESSNESS BUT IS CALM FOR THE MOST PART DURING VERBAL INTERACTION, PT IS ALERT TO PERSON ONLY WITH SHORT & BLANKING PRESS OPERATOR MEMORY DEFICITS. NO YELLING OR AGITATION. ATE SNACK. INCONTINENT OF BLADDER. HS BEDSIDE GLUCOSE 193. TOOK HS MEDICATIONS CRUSHED & MIXED IN APPLESAUCE. 2 STAFF ASSISTS NEEDED FOR TRANSFER & ADLS, P-CONTINUE TO MONITOR BEHAVIORS & PROVIDE PHYSICAL ASSISTANCE & EMOTIONAL SUPPORT.
--- NOTE | 2020-01-20 05:22 | NUR ---
PT HAS SLEPT QUIETLY THROUGHOUT THE SHIFT PAST 2129 SLEEPING APPX 8 HOURS
--- NOTE | 2020-01-20 06:43 | NUR ---
AM BEDSIDE GLUCOSE 214
--- NOTE | 2020-01-20 07:50 | NUR ---
DR. MOORE ON UNIT TO ASSESS PATIENT.
[2020-01-20 08:00] VITALS: BP 111/78
--- NOTE | 2020-01-20 08:15 | NUR ---
Treatment Plan meeting was held with Dr. Sweeney, ADRIEL Nance, RN, AT, BEE BREEDER-S and Unified Communications Architect. Plan for discharge at the end of the week or early next week. Continue to work on placement.
--- NOTE | 2020-01-20 08:15 | NUR ---
Patient resting quietly with no c/o discomfort. Respirations easy and regular. Vital signs stable. No overt distress. ZIA MCKEON
--- NOTE | 2020-01-20 08:25 | NUR ---
PHYSICAL THERAPY Patient seen this am for therapy visit and was sitting up in activity room Kati chair upon therapist arrival. Patient identified by name / and was very pleasant this session. OT medical receptionist assistant was also present for observation this morning as patient was transported to his room via Emily chair and completed sit to stand transfer, then SPT to EOB sit, FEDERAL AGENT/CGA, demonstrating increaseed difficulty picking up / advancing L LE. Patient also ambulated FEDERAL AGENT/CGA, along handrail, 20'x 1, demonstrating "festinating" gait pattern and POOR upright posture. Patient returned to his Kati chair in activity room with lap tray and body alarm under [facility] staff Supervision. Will continue per POC as tolerated, total treatment time 16 minutes. Homar Calderon, REPAIR TECH
--- NOTE | 2020-01-20 08:40 | NUR ---
OT NOTE Prior to coming to the floor spoke with nurse Robison and reported that therapy was coming to the floor to treat this pt. Pt was seen this A.M. 1:1 for 15 minute OT session with MOTION PICTURE SET WORKER and nursing staff present for observation only. Upon arrival pt was sitting upright in the mireya chair in the dining craft. Pt identified by name and and had no complaints at this time. Pt was taken to his room due to pants being wet and soiled. Sit to stand completed from chair level with CGA followed by standing pivot from the chair to the EOB with Solis and verbal prompts for foot advancement. Pt doffed pants while sitting EOB with modA and doffed socks with Solis. Pt then donned new pants and socks with modA. Sit to stand completed from bed level with Solis followed by standing pivot to the mireya chair with Solis. Pt was taken out into the hallway, there his static standing tolerance was challenged for enhanced endurance. Pt was able to tolerate aprox 5 minutes at a time before sitting due to fatigue. Pt was left sitting semi reclined in the mireya chair in the dining craft under [facility] staff supervision, lap tray in place, and body alarm activated for safety. Continue with rec D/C plan to SNF. CLARA Sarah/Nickolas
--- NOTE | 2020-01-20 11:11 | NUR ---
Spoke with Jr Rogers at [facility]. They do have male beds available. Referral Faxed to [phone].
--- NOTE | 2020-01-20 11:13 | NUR ---
Spoke with Mily Marsh concerning follow up to referral that was faxed. She states that Currently their Corporate is reviewing all potential admissions and referrals and she would inform environmental planner if accepted or declined.
--- NOTE | 2020-01-20 11:19 | NUR ---
Referral to [facility] to [facility].
--- NOTE | 2020-01-20 11:31 | NUR ---
AM GROUP PT WAS PRESENT FOR MORNING GROUP THERAPY RECLINED IN A CHADWICK CHAIR. PT WAS PLACED AT THE TABLE WITH PEERS BUT PROMPTLY FELL ASLEEP. PT DID NOT WAKE DURING GROUP AND WAS NOTED TO BE SNORING LOUDLY.
--- NOTE | 2020-01-20 11:37 | NUR ---
Spoke with Yumiko at [facility] in [place]. They currently have a male Bed Semi Private. Referral Faxed to [phone] Attn: Yumiko. Also if Pt. would be more appropriate for their sister facility they will send referral to [facility] which has a dementia Unit.
--- NOTE | 2020-01-20 12:01 | NUR ---
Mily Frederick from [facility] returned Call. They are unable to meet Pt. needs. They have sent referral to [facility] in [facility] Attn: Bre for Further review.
--- NOTE | 2020-01-20 14:10 | NUR ---
P- Confusion, poor ST memory, depressed mood with tearful episodes at times. Occasionally calling out for , restless, more easily redirected this shift. Compliant with HOC, no aggressive behaviors displayed. I- Orientation, mood and behaviors assessed. Assessed pt for SI/HI, intent or plan. Assessed pt for s/s hallucinations, paranoia and/or delusions. Medications adminsitered as per physician's orders. Assistance with ADL care provided as needed. Encouraged pt to attend and participate in [facility] groups and activities. R- Pt is A+O to person, approximate place. Pt states he is in the hospital but unable to state which one. Not oriented to time/date or situation. Memory gaps noted. Resps easy and even on room air. Mood depressed, affect sad at times with periods of tearfulness noted when talking about missing his . Speech is WNL and coherent, able to make needs known without difficulty. Pt denies SI/HI, intent or plan. Pt denies hallucinations, no response to internal stimuli noted. No paranoia or delusions noted. Pt occasionally calls out for , easier to redirect this shift than previously assessed by this RN. Pt restless this afternoon, went for short walk with staff with positive effect. Pt compliant with HOC, recieved complete bed bath and shave without difficulty. No aggressive behaviors displayed. No distress noted. P- Plan to continue current treatment, continue to monitor mood and behaviors, provide appropriate reorientation, redirection and 1:1 as needed. Continue to encourage medication compliance as well as group attendance and participation.
--- NOTE | 2020-01-20 14:57 | NUR ---
Spoke with pt's Ines this AM. Discussed discharge options and informed her of the NFs that have denied pt. Discussed SNF vs AL and educated Ines on the differences of payor resources. Ines stated that she is unable to private pay for any facility for pt. Discussed Medicaid and educated Ines about this. Ines is now open to any NF within an hour distance from her home. Discussed the challenge of finding a NF that will accept pt as well as his health insurance. Will continue to explore NF options.
--- NOTE | 2020-01-20 15:14 | NUR ---
CONTINUED REVIEW LEFT ON CONFIDENTIAL VOICE MAIL OF
--- NOTE | 2020-01-20 15:27 | NUR ---
Additional Clinical Updates faxed to [facility].
--- NOTE | 2020-01-20 15:27 | NUR ---
PM GROUP PT DID NOT ATTEND AFTERNOON GROUP THERAPY. PT WAS IN BED RESTING.
[2020-01-20 19:00] VITALS: BP 114/56
--- NOTE | 2020-01-20 21:27 | NUR ---
Patient alert and oriented to person only with confusion noted. Patient became agitated slightly and was verbally aggressive with yelling and cursing. Patient calmed down on his own after assisting patient to bed. ST/LT memory deficits noted. No overt s/s of responding to internal stimuli noted at this time. No SI/HI noted at this time. Patient compliant with HS medications without any difficulty. Provided 1:1 for emotional support. Redirected/ reoriented when needed. Patient receptive to redirection/reorientation but forgets very quickly. Plan to continue to encourage medication compliance. Also continue to offer emotional support and redirect/reorient when needed/appropriate. Will continue to monitor moods/behaviors. Q 15 minute safety checks continued and maintained. See [facility] flowsheet for further documentation.
--- NOTE | 2020-01-21 00:17 | NUR ---
24 HR chart check completed.
--- NOTE | 2020-01-21 05:29 | NUR ---
Patient slept approx. 8 hours throughout shift. Q 15 minute safety checks continued and maintained.
--- NOTE | 2020-01-21 07:30 | NUR ---
Patient resting quietly with no c/o discomfort. Respirations easy and regular. Vital signs stable. No overt distress. MADELYN JUAREZ
[2020-01-21 07:50] VITALS: BP 136/60
--- NOTE | 2020-01-21 08:10 | NUR ---
and on unit to see pt at this time.
--- NOTE | 2020-01-21 08:15 | NUR ---
Treatment Plan meeting was held with Dr. Sweeney, RN, AT, PULVERIZER MILL OPERATOR-S and Egg Gatherer. Plan for discharge Saturday-Saturday if Placement Secured.
--- NOTE | 2020-01-21 08:35 | NUR ---
PHYSICAL THERAPY Patient seen this am for therapy visit and was sitting semi reclined in activity room Kati chair upon therapist arrival. Patient identified by name / and reports no new c/o's at this time. OT web production assistant was also present for observation only as patient instructed / performed seated B LE therex, all planes, 2 x 10 reps. Patient needed v/c to complete full AROM and tolerated all ex without c/o. Patient remained in activity room Kati chair with lap tray, body alarm for safety under [facility] staff Supervision. Will continuue per POC as tolerated, total treatment time 14 minutes. Homar Calderon, ASSISTANT PROFESSOR OF NURSING
--- NOTE | 2020-01-21 08:55 | NUR ---
OT NOTE Prior to coming to the floor spoke with charge nurse Mehreen and reported that therapy was coming to the floor. Pt was seen this A.M. 1:1 for 20 minute OT session with PLASTIC PRINTER and nursing staff present for observation only. Upon arrival pt was sitting upright in the mireya chair. Pt identified by name and and had no complaints at this time. Pt was taken out into the hallway where he completed multiple sit to stand transfers from chair level with CGA and use of hand rail for UE support. Challenged pt's static standing tolerance needed for increased I in self care tasks and functional transfers, pt was able to tolerate aprox 5 minutes at a time before sitting due to fatigue. Pt was then taken back to the dining craft where he completed AROM to the RUE digits, wrists, elobow, and shoulder over all planes of motion and AA/PROM to LUE digits, wrists, elbows, and shoulders over all planes of motion for 1 X 10 to increase and restore ROM. Pt was left sitting upright in the mireya chair in the dining craft under [facility] staff supervision, lap tray in place, and body alarm activated for safety. Continue with rec D/C plan to SNF. CLARA Sarah/Nickolas
--- NOTE | 2020-01-21 11:23 | NUR ---
AM GROUP PT WAS PRESENT FOR MORNING GROUP THERAPY SITTING AT A TABLE WITH PEERS. PT STATED THAT HE WOULD LIKE TO COLOR BUT PUT HIS HEAD DOWN ON THE TABLE AND WENT TO SLEEP. PT WOKE A FEW TIMES, "SOBBING" AND ASKING AFTER HIS . PT WAS CONTENT WITH KNOWING THAT SHE WAS SAFE AT HOME. PT EXHIBITED NO AGITATION OR AGGRESSION WHILE IN GROUP.
--- NOTE | 2020-01-21 11:53 | NUR ---
PT ALERT TO PERSON WITH CONFUSION NOTED. MEMORY DEFICITS NOTED. IRRITABLE AT TIMES. DISRUPTIVE AT TIMES WITH YELLING OUT FOR . EASILY REDIRECTABLE. PT CAN BE DEMANDING AT TIMES. NO HALLUCINATIONS OR DELUSIONS NOTED AT THIS TIME. INTERACTIVE WITH STAFF, WHEN STAFF APPROACHES PT. MEDICATION COMPLIANT WITHOUT DIFFICULTY. AMBULATORY AND TRANSFER WITH 2 ASSIST. BRUISE NOTED TO LEFT ELBOW. PT UP TO CHADWICK CHAIR IN VIEW OF NURSES STATION. FALL PROTOCOL MAINTAINED. Q15 MINUTE SAFETY CHECKS MAINTAINED. WILL CONTINUE TO MONITOR BEHAVIORS WITH Q15 MINUTE SAFETY CHECKS. CONTINENT AT THIS TIME. WILL CONTINUE TO MONITOR. APPETITE GOOD. COMPLIANT WITH DIET.
--- NOTE | 2020-01-21 11:55 | NUR ---
Spoke with Albino Rogers at [facility] Unable to accept patient at this time.
--- NOTE | 2020-01-21 12:43 | NUR ---
Shaheen unable to obtain 1 time agreement with [facility]. Referral Declined. Left Message for Alicja Yoo at [facility] to follow up referral [phone].
--- NOTE | 2020-01-21 12:48 | NUR ---
Spoke with Amanda at [facility] who is looking for facilities in the [facility] within [place].
--- NOTE | 2020-01-21 14:24 | NUR ---
[facility] Tosin [phone].
--- NOTE | 2020-01-21 15:01 | NUR ---
Left Message for Caryn Bolton at [facility] concerning referral.
--- NOTE | 2020-01-21 15:35 | NUR ---
PM GROUP PT DID NOT ATTEND AFTERNOON GROUP THERAPY. PT WAS IN BED NAPPING.
--- NOTE | 2020-01-21 15:46 | NUR ---
Referral Faxed to [facility] Attn: Caryn [phone].
[2020-01-21 18:58] VITALS: BP 137/64
--- NOTE | 2020-01-21 21:49 | NUR ---
Patient alert and oriented to person only with confusion noted. Patient became agitated slightly and was verbally aggressive with yelling and cursing. Patient yelling for his . Patient asked this nurse "where is my ?" This nurse told patient that his is at home. Patient calmed down on his own after assisting patient to bed. ST/LT memory deficits noted. No overt s/s of responding to internal stimuli noted at this time. No SI/HI noted at this time. Patient compliant with HS medications without any difficulty. Provided 1:1 for emotional support. Redirected/ reoriented when needed. Patient receptive to redirection/reorientation but forgets very quickly. Plan to continue to encourage medication compliance. Also continue to offer emotional support and redirect/reorient when needed/appropriate. Will continue to monitor moods/behaviors. Q 15 minute safety checks continued and maintained. See [facility] flowsheet for further documentation.
--- NOTE | 2020-01-22 04:27 | NUR ---
FLAQUITA JOINER [id number] Please refer to the physician's history and physical for past medical history, comorbid conditions, and allergies. Diagnosis: INTERMITTANT EXPLOSIVE DISORDER Doc Score: 16,AT RISK WOUND DESCRIPTIONS: Wound Number: 1 Left elbow eccymotic area noted at time of assessment. No open areas noted at time of assessment. No drainage noted at time of assessment. Wound Number: 2 Left 2nd toe pink and blanchable in color. No open areas at time of assessment. No drainage noted at time of assessment. Wound Number: 3 Left 4th toe pink and blanchable in color. No open areas at time of assessment. No drainage noted at time of assessment. Wound Number: 4 Left foot 3rd toe toe pink and blanchable in color. No open areas at time of assessment. No drainage noted at time of assessment. Wound Number: 5 Left elbow ecchymotic area measures 13.5cm x 7.0cm x <0.1cm. No drainage noted at time of assessment. No pain noted at time of assessment. Pt unable to state how this happened Wound Number: 6 Right hand pink and blanchable in color. No open areas at time of assessment. No drainage noted at time of assessment. Wound Number: 7 Left 2nd toe pink and blanchable in color. No open areas at time of assessment. No drainage noted at time of assessment. Wound Number: 8 Location of the wound: left top of foot Type of wound: scab Thickness: Partial Size: 0.5cm x 0.4cm x <0.1cm Tunneling: none Undermining: none Sinus Tract: none Presence of Exudate: none Amount: None Color: Red Odor: None Periwound Skin Appearance: Normal Wound edges: approximated Pain (associated with wound): none at time of assessment How does patient state this happened? pt unable to state how this happened Wound Number: 9 Location of the wound: right top of foot Type of wound: scab Thickness: Partial Size: 0.2cm x 0.2cm x <0.1cm Tunneling: none Undermining: none Sinus Tract: none Presence of Exudate: none Amount: None Color: Red Odor: None Periwound Skin Appearance: Normal Wound edges: approximated Pain (associated with wound): none at time of assessment How does patient state this happened? pt unable to state how this happened Wound Number: 10 Right 4th toe pink and blanchable in color. No open areas at time of assessment. No drainage noted at time of assessment. Wound Number: 11 Left knee pink and blanchable in color. No open areas at time of assessment. No drainage noted at time of assessment. Wound Number: 12 Right knee pink and blanchable in color. No open areas at time of assessment. No drainage noted at time of assessment. Periarea pink and blanchable at time of assessment. No odor noted at time of assessment. Buttocks is red and blanchable at time of assessment. No open areas noted at time of assessment. Surface the patient is resting on: Isoflex SKIN PREVENTION RECOMMENDATION: 1. Pressure redistribution support surface as appropriate 2. Elevate heels 3. Remove boots/TEDS every shift and reapply 4. Head of bed 30 degrees as tolerated 5. Assess nutrition and hydration 6. Manage moisture 7. Avoid the use of containment devices while in bed 8. Use absorptive products on surfaces limit layers of linens on bed 9. Turn and reposition every 1-2 hours in bed and every 1 hour in chair as tolerated 10. Weight shifts every 15 minutes while up in chair 11. Offloading with pillows or device to keep heels elevated off bed 12. Monitor skin at least every shift 13. Inspect under medical devices twice a day WOUND TREATMENT RECOMMENDATIONS: D/C stage 2 guidelines to right knee and left knee area resolved. Continue dressing change to buttocks with hydraguard Continue stage 1 guidelines to left top of foot and right top of foot Contiue heel raiser pro boots to bilateral feet while in bed Continue wheelchair cushion when oob.
--- NOTE | 2020-01-22 05:22 | NUR ---
Patient slept approx. 7.5 hours throughout shift. Q 15 minute safety checks continued and maintained.
[2020-01-22 08:00] VITALS: BP 147/65
--- NOTE | 2020-01-22 08:05 | NUR ---
PHYSICAL THERAPY Patient seen this am for therapy visit and was sitting in activity room Kati chair upon therapist arrival. Patient identified by name / and voices no new c/o's at this time. OT access services assistant was also present for observation only as patient transfers sit to stand at rail in hallway, CGA x 1 with R UE support. Patient ambulates STRAP BUCKLER/MIN, 20'x 1, demonstrating unsteady gait pattern, uneven stride and needed several v/c's to keep head up while taking BIG steps. Patient also fatigues quickly upon return to Kati chair and remained in activity room with B heel protectors, lap tray, body alarm, under U staff Supervision. Will continue per POC as tolerated, total treatment time 14 minutes. Homar Calderon, COUNTY HEALTH OFFICER
--- NOTE | 2020-01-22 08:19 | NUR ---
OT NOTE Prior to coming to the floor spoke with Jocelyn and reported that therapy was coming to the floor to treat this pt. Pt was seen this A.M. 1:1 for 19 minute OT session with COAL BAGGER and nursing staff present for observation only. Upon arrival pt was sitting upright in the mireya chair in the dining craft. Pt identified by name and and had no complaints at this time. Pt was then taken out to the hallway where he completed multiple sit to stand transfers from chair level with CGA and use of hand rail for UE support. Challenged pt's static standing tolerance needed for increased I in self care tasks and functional transfers, pt was able to tolerate aprox 5 minutes at a time before sitting due to fatigue. Pt was then taken back into the dining craft where he completed AROM to RUE over all joints and planes of motion for 1 X 10 and AA/PROM to LUE over all joints and planes of motion for 1 X 10. Pt was left sitting upright in the mireya chair in the dining craft under U staff supervision, lap tray in place, and body alarm activated for safety. Continue with rec D/C plan to SNF. CLARA Sarah/Nickolas
--- NOTE | 2020-01-22 08:35 | NUR ---
Patient questioning where his Ines is. Explained that she was home and that pt was in [place]. Pt became tearful stating that his needs to be right here. Explained to pt why that is not possible at this time. Pt stated that if this is true, he just wants to eat something here that he can from. Empathized with pt and provided encouragement. Informed pt that plans are being worked on to get pt closer to his as soon as possible.
--- NOTE | 2020-01-22 09:05 | NUR ---
Treatment Plan meeting was held with Dr. Sweeney, ADRIEL Nance, RN, AT, CUSTODIAL MANAGER-S and Program Review Director. Plan for discharge when Placement secured. Pt. requires 24 hour care and supervision due to dementia that is unable to provide at home. Working with on appropriate placement and difficult insurance issues due to so many facilities which are out of network and Pt. does not have a secondary Payor at this time.
--- NOTE | 2020-01-22 09:42 | NUR ---
Dr. Hernandez notified of wound care recommendations.
--- NOTE | 2020-01-22 11:06 | NUR ---
Voicemail with continued review stay clinical left for Christina dickens [facility]. Awaiting return call.
--- NOTE | 2020-01-22 11:30 | NUR ---
AM GROUP PT WAS PRESENT FOR MORNING GROUP THERAPY AND PARTICIPATED FOR A SHORT TIME. PT BECAME RESTLESS AND AGITATED STATING, "I NEED TO GET THIS DAMN THING OFF SO THAT I CAN GET OUT OF HERE!" REFERING TO THE TRAY ON THE CHADWICK CHAIR. PT THEN STRIPPED OFF HIS HEEL PROTECTORS, SOCKS, ELBOW PROTECTORS AND THREW HIS BLANKET AND PILLOW ON THE FLOOR. PT COULD NOT BE REDIRECTED.
--- NOTE | 2020-01-22 12:12 | NUR ---
Received call from Christina Parsons, IP jb, LCD 01/23, NRD 01/24. Ref # [id number]
--- NOTE | 2020-01-22 12:14 | NUR ---
Received Call from Sharad at [facility], They are unable to accept patient due to complex needs.
--- NOTE | 2020-01-22 12:18 | NUR ---
[facility]: Tosin [phone].
--- NOTE | 2020-01-22 12:24 | NUR ---
Call placed to [facility]. STEVE Fisher is working on referral due to Caryn being off today. Natalia is currently off for the day. Left Message for return call.
--- NOTE | 2020-01-22 12:45 | NUR ---
PHYSICAL THERAPY CO-SIGN I approve of the Physical Therapy notes written above. REMBERTO TAY PT, DPT
--- NOTE | 2020-01-22 12:46 | NUR ---
Received Call from Natalia at [facility]. Referral is declined due to Behaviors.
--- NOTE | 2020-01-22 12:47 | NUR ---
OCCUPATIONAL THERAPY CO-SIGN I approve of the Occupational Therapy notes written above. CHEYENNE PETER, OTR/L
--- NOTE | 2020-01-22 12:53 | NUR ---
Left Message Alicja at [facility] to inquire about referral that was faxed for Behavioral Unit 01/21/20
--- NOTE | 2020-01-22 13:29 | NUR ---
Received Call from [facility]. Unable to accept patient at this time.
--- NOTE | 2020-01-22 15:34 | NUR ---
PT UP FROM NAP AND AGITATED, YELLING FOR HIS . PT WAS OFFERED TO AMBULATE WITH ASSISTANCE AND PT REFUSED. 1:1 PROVIDED AND PT NOT REDIRECTABLE. PRN VISTARIL PROVIDED AT THIS TIME. SEROQUEL GIVEN EARLY. WILL MONITOR EFFECTIVENESS OF MEDICATION.
--- NOTE | 2020-01-22 15:36 | NUR ---
Spoke with pt's Ines and informed her that pt has not yet been accepted to any NF. Ines asked specifically about [place]. Informed her that pt was denied there. Ines expressed much concern. Empathized with her and explained that referrals are continuing to be made. Spoke with Edie at Dr Delarosa's office, who has also been attempting to locate a NF for pt. She is going to speak to another person in the office for other NF possibilities. Await return call.
--- NOTE | 2020-01-22 16:35 | NUR ---
PRN EFFECTIVE AT THIS TIME. WILL CONTINUE TO MONITOR.
[2020-01-22 19:09] VITALS: BP 140/69
--- NOTE | 2020-01-22 21:04 | NUR ---
DR KEENAN UPDATED WITH PATIENT BLOOD SUGAR RESULT. NO NEW ORDERS AT THIS TIME
--- NOTE | 2020-01-22 23:43 | NUR ---
P-CONFUSED I-REDIRECTION WITH 1:1 THERAPEUTIC INTERVENTIONS AND PRESENT REALITY. EDUCATE AND ENCOURAGE MEDICATION COMPLIANCE R-PATIENT MEDICATION COMPLIANT AT HS. PATIENT WITH NO HALLUCINATIONS OR DELUSIONS. PATIENT WITH NO SUICIDAL OR HOMICIDAL IDEATIONS. PATIENT WITH SHORT TERM AND DRAWING PRESS OPERATOR MEMORY DEFICITS. PATIENT RESTLESS AT HS BUT REDIRECTABLE. NOURISHMENT AND FLUIDS PROVIDED AT HS. P-CONTINUE TO ENCOURAGE MEDICATION COMPLIANCE, CONTINUE TO PRESENT REALITY, ENCOURAGE GROUP THERAPY WHILE AWAKE
--- NOTE | 2020-01-23 05:45 | NUR ---
PATIENT SLEPT 8 HOURS OF UNINTERRUPTED SLEEP THROUGHOUT SHIFT. Q 15 MINUTE CHECKS MAINTAINED. 24 HR chart check completed.
--- NOTE | 2020-01-23 07:30 | NUR ---
DR. MOORE ON UNIT TO ASSESS PATIENT.
[2020-01-23 08:00] VITALS: BP 151/69
--- NOTE | 2020-01-23 13:37 | NUR ---
P: TEARFUL WHEN ASSISTED TO BED FOR NAP STATING "I MISS MY CHILDREN", YELLING OUT CALLING FOR "PERFECTO" SPOUSE. RAISED VOICE AND ANGRY, DEMENDING TO CALL SPOUSE. I: ONE ON ONE FOR EMOTIONAL SUPPORT, REDIRECTION/ORIENTATION, OFFERED MUSIC THERAPY AND SON CALLED IN TO TALK WITH PATIENT. R: EFFECTIVE. PATIENT IS ALERT TO PERSON WITH CONFUSION. LONG/SHORT TERM MEMORY DEFICITS. MOOD IS LABILE. NO VOICED STATEMENT OF HI, SI OR PAIN. NO RESPONSE TO INTERANL STIMULI OBSERVED. MUSIC THERAPY EFFECTIVE. 1-2 PERSON ASSIST WITH ACTIVITIES OF DAILY LIVING, CONTINENT OF BOWEL AND BLADDER. SET UP FOR MEALS, INTAKES ARE GOOD WITH ADEQUATE FLUIDS. MEDICATION COMPLAINT. Q 15 MINUTE SAFETY CHECKS MAINTAINED. NO AGGRESSION OBSERVED. P: CONTINUE TO MONITOR FOR AGGRESSION. PROVIDE ONE ON ONE, REDIRECTION/ORIENTATION AND MUSIC THERAPY NEEDED.
--- NOTE | 2020-01-23 15:05 | NUR ---
Shift chart check completed.
[2020-01-23 20:00] VITALS: BP 132/57
--- NOTE | 2020-01-23 21:52 | NUR ---
P-CONFUSED, IRRITABLE I-REDIRECTION WITH 1:1 THERAPEUTIC INTERVENTIONS AND PRESENT REALITY. EDUCATE AND ENCOURAGE MEDICATION COMPLIANCE R-PATIENT MEDICATION COMPLIANT AT HS. PATIENT WITH NO HALLUCINATIONS OR DELUSIONS. PATIENT WITH NO SUICIDAL OR HOMICIDAL IDEATIONS. PATIENT WITH SHORT TERM AND NEWS OPERATIONS MANAGER MEMORY DEFICITS. PATIENT IRRITABLE AT HS WHEN CARE BEING PROVIDED BUT REDIRECTABLE. NOURISHMENT AND FLUIDS PROVIDED AT HS. P-CONTINUE TO ENCOURAGE MEDICATION COMPLIANCE, CONTINUE TO PRESENT REALITY, ENCOURAGE GROUP THERAPY WHILE AWAKE
--- NOTE | 2020-01-24 05:40 | NUR ---
PATIENT SLEPT 8 HOURS OF UNINTERRUPTED SLEEP THROUGHOUT SHIFT. Q 15 MINUTE CHECKS MAINTAINED. 24 HR chart check completed.
[2020-01-24 07:16] VITALS: BP 142/71
--- NOTE | 2020-01-24 09:45 | NUR ---
P-CONFUSED I-REDIRECTION WITH 1:1 THERAPEUTIC INTERVENTIONS AND PRESENT REALITY. EDUCATE AND ENCOURAGE MEDICATION COMPLIANCE R-PATIENT MEDICATION COMPLIANT. PATIENT WITH SHORT TERM AND SKILLED NURSING MEMORY DEFICITS. PATIENT WITH NO HALLUCINATIONS OR DELUSIONS. PATIENT WITH NO SUICIDAL OR HOMICIDAL IDEATIONS. PATIENT WITH EPISODES OF IRRITABILITY BUT IS EASILY REDIRECTED. PATIENT SHOWERED THIS SHIFT. THIS NURSE RECEIVED A PHONE CALL FOR PATIENT'S AND WAS UPDATED WITH AN CONCERNS. P-CONTINUE TO ENCOURAGE MEDICATION COMPLIANCE, CONTINUE TO PRESENT REALITY, ENCOURAGE GROUP THERAPY WHILE AWAKE
--- NOTE | 2020-01-24 10:59 | NUR ---
PATIENT WITH INCREASED BEHAVIORS AT THIS TIME. PATIENT YELLING OUT, HITTING OBJECTS, USING VULGAR LANGUAGE, ATTEMPTING TO GET UP WITHOUT ASSISTANCE. ALL NONPHARMACOLOGIC INTERVENTIONS ATTEMPTED TO REDIRECT PATIENT WITH INEFFECTIVE RESULTS. PATIENT TEARFUL AND UNABLE TO CALM DOWN PATIENT GIVEN VISTARIL AND MEDICATION EFFECTIVE AT THIS TIME
--- NOTE | 2020-01-24 12:48 | NUR ---
PT DOZING OFF AND ON IN CHAIR, OFFERED TO LAY PT DOWN IN BED, PT STATES "NO, I'M GOOD HERE. I'M COMFORTABLE". PT RECLINED IN CHAIR WITH SEAT CUSHION IN PLACE, MOVES SELF FREQUENTLY.
[2020-01-24 20:00] VITALS: BP 130/70
--- NOTE | 2020-01-24 22:48 | NUR ---
P-CONFUSION, ST/LT MEMORY DEFICITS, INTERMITTENTLY RESTLESS. I-PROVIDE 1:1 WITH THERAPEUTIC INTERVENTIONS. REORIENT AND PRESENT REALITY NEEDED. ENCOURAGE MEDICATION COMPLIANCE AND EDUCATE. MONITOR SLEEP. R-PT ALERT AND ORIENTED TO SELF, PLEASANTLY CONFUSED. PT INTERMITTENTLY RESTLESS WHILE SITTING IN DINING ROOM AFTER EATING SNACK, STATING HE WAS "PART WAY TO [place]" AND DONT KNOW WHERE TO PUT HIS GARBAGE CAUSE HE IS READY FOR BED. PT OTHERWISE CALM AND INTERACTIVE, EASILY REDIRECTABLE WHEN NEEDED. MEDICATION COMPLIANT WITHOUT DIFFICULTY WHEN CRUSHED. PT DENIES SI/HI, HALLUCINATIONS OR PAIN. NO AGGRESSION OR AGITATION NOTED. ALL CARE ANTICIPATED BY STAFF, ASSIST X1, INCONTINENT OF BOWEL AND BLADDER. NO DISTRESS NOTED. P-MONITOR MOOD AND BEHAVIORS. MAINTAIN Q 15 MIN CHECKS AND PRN FOR SAFETY.
--- NOTE | 2020-01-25 01:39 | NUR ---
24 HOUR CHART CHECK COMPLETED.
--- NOTE | 2020-01-25 06:09 | NUR ---
PATIENT OBSERVED ON Q 15 MIN CHECKS TO HAVE SLEPT APPROX 7 HOURS UNINTERRUPTED. NO SIGNS OR SYMPTOMS OF DISTRESS NOTED.
[2020-01-25 07:29] VITALS: BP 139/68
--- NOTE | 2020-01-25 08:10 | NUR ---
PHYSICAL THERAPY Patient seen this am for therapy visit and was sitting in activity room Kati chair upon therapist arrival. Patient identified by name / and voiced no new c/o's at this time. OT medical lab assistant was present for observation only this session as patient transfers sit to stand CGA x 1. Patient ambulates OIL BURNER TECHNICIAN/CGA, 16'x 1, demonstrating very unsteady gait pattern, decreased stride and total of 50 steps to complete all gait ex. Patient also tolerated approx 1 minute static stand prior to quick onset of fatiuge. Patient returned to his Kati chair, semi reclined with body alarm, under [facility] staff Supervison. Will continue per POC as tolerated, total treatment time 14 minutes. Homar Calderon, NICKEL OPERATOR
--- NOTE | 2020-01-25 08:20 | NUR ---
OT NOTE Prior to coming to the floor spoke with charge nurse Abby and reported that therapy was coming to the floor to treat this pt. Pt was seen this A.M. 1:1 for 20 minute OT session with PARACHUTE SUPERVISOR and nursing staff present for observation only. Upon arrival pt was sitting upright in the mireya chair in the dining craft. Pt identified by name and and had no complaints at this time. Pt was taken out to the hallway where he completed multiple sit to stand transfers from chair level with CGA for safety. Challenged pt's static standing tolerance needed for increased I in self care tasks and functional transfers, pt was able to tolerate aprox 1-2 minutes at a time before sitting due to fatigue. Pt was then taken back into the dining craft where he completed AROM to his RUE and AAROM to his LUE over all joints and planes of motion for 1 X 10 to increase and restore maximum functional use. Pt was left sitting upright in the mireya chair in the dining craft under [facility] staff supervision, lap tray in place, and body alarm activated for safety. Continue with rec D/C plan to SNF. CLARA Sarah/Nickolas
--- NOTE | 2020-01-25 08:45 | NUR ---
DR MOORE ON UNIT TO ASSESS PT, UPDATE PROVIDED.
--- NOTE | 2020-01-25 09:52 | NUR ---
PT IN DINING ROOM YELLING OUT, POUNDING ON TABLE, CURSING AT STAFF. STAFF REMOVED PT FROM DINING ROOM AND PLACED IN VÁZQUEZ TO SIT WITH NURSE, PT CONTINUES TO CURSE AT STAFF AND DEMANDING TO SEE , ALSO STATING "LET ME WALK SO I CAN JUMP OFF THE BRIDGE, ALL MY WANTS TO DO IS PUT ME SOMEWHERE SO I CAN'T BE SEEN OR HEARD OR GIVE ME A KNIFE OR GUN SO I CAN TAKE CARE OF THIS". STAFF PROVIDED 1:1 FOR PT TO VOICE FEELINGS AND RE-ORIENTED PT ON CURRENT SITUATION AND REASONS HE CANNOT SEE HIS AT THIS TIME. STAFF PROVIDED DRINK FOR PT AND PT THREW DRINK ON THE FLOOR. PT UNRECEPTIVE TO REDIRECTION OR REORIENTATION. PT MEDICATED WITH VISTARIL PO PRN PER ORDERS, WILL CONTINUE TO MONITOR PT BEHAVIORS.
--- NOTE | 2020-01-25 11:29 | NUR ---
AM GROUP PT IS UNABLE TO ATTEND GROUP THERAPY AT THIS TIME. PT WAS 1:1 WITH NURSE DUE TO AGITATION. PT WILL BE ENCOURAGED TO ATTEND AFTERNOON GROUP THERAPY.
--- NOTE | 2020-01-25 11:53 | NUR ---
Phoned [facility] and was informed that pt's insurance is not in network. Phoned Cecelia at [facility] and faxed referral to her attention. Await decision.
--- NOTE | 2020-01-25 12:32 | NUR ---
Per request of pt's Ines, left a voicemail message for Judith Ventura at [facility] inquiring about faxing referral to his attn for pt. Await a return call.
--- NOTE | 2020-01-25 14:32 | NUR ---
Spoke with Nelida at [facility] and faxed pt's referral to her attention.
--- NOTE | 2020-01-25 14:33 | NUR ---
Received a return call from [facility] who stated that they are unable to meet pt's needs there. Attempted to contact pt's Ines but she did not answer her phone and the voicemail was unavailable.
--- NOTE | 2020-01-25 15:29 | NUR ---
Pt has been accepted to [facility] and pt's Ines is agreeable to this. [facility] will need to receive insurance pre-authorization prior to pt discharge. Discussed with Ines when pt will be informed of this. It was decided that this adjusto writer operator will inform pt of discharge plan when notified of pre-auth approval.
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
[2020-01-25 20:00] VITALS: BP 120/62
--- NOTE | 2020-01-26 01:46 | NUR ---
P-CONFUSED, TEARFUL, ANGRY/IRRITABLE. PT STATED TO STAFF "IF MY ISNT HERE THEN THAT MEANS SHE IS OUT SLEEPING AROUND KNOW IT". I-ASSESS ORIENTATION, MOOD, AND BEHAVIOR. PRESENT REALITY AND REORIENT. PROVIDE 1:1 WITH THERAPEUTIC INTERVENTIONS. PROVIDE SUPPORT. ENCOURAGE MEDICATION COMPLIANCE AND EDUCATE. MONITOR SLEEP. R-PATIENT ALERT TO SELF, CONFUSED. PT INTERMITTENTLY TEARFUL/AGITATED AT BEGINNING OF SHIFT BELIEVING HIS IS OUT CHEATING. EASILY REDIRCTABLE FOR SHORT PERIODS. NO COMBATIVE BEHAVIORS NOTED. MEDICATION COMPLIANT WITHOUT DIFFICULTY, UNABLE TO EDUCATE DUE TO COGNITION. PATIENT DENIES SI/HI, HALLUCINATIONS OR PAIN. NO NOTED RESPONDING TO INTERNAL STIMULI. ALL NEEDS ANTICIPATED BY STAFF, COMPLIANT WITH CARE, ASSIST X2. PATIENT CURRENTLY LAYING DOWN WITH EYES CLOSED, RESPIRATIONS EASY AND REGULAR, NO SIGNS OR SYMPTOMS OF DISTRESS NOTED. P-CONTINUE TO MONITOR MOOD AND BEHAVIORS. MAINTAIN Q 15 MIN CHECKS AND PRN FOR SAFETY.
--- NOTE | 2020-01-26 05:53 | NUR ---
PATIENT OBSERVED ON Q 15 MIN CHECKS TO HAVE SLEPT APPROX 8 HOURS UNINTERRUPTED. NO SIGNS OR SYMPTOMS OF DISTRESS NOTED.
[2020-01-26 07:33] VITALS: BP 120/57
--- NOTE | 2020-01-26 08:00 | NUR ---
Patient sitting quietly. Respirations easy and regular. Vital signs stable. No overt distress. TAMY RUEDA
--- NOTE | 2020-01-26 08:05 | NUR ---
PHYSICAL THERAPY Patient seen this am for therapy visit and was sitting up in activity room w/c upon therapist arrival. Patient identified by name / and was very quiet this morning, voicing no new c/o's at this time. OT special education educational assistant was also present for observation only this session as patient was transported via w/c to his room, performing sit to architectural intern bathroom, CGA, use of grab bar, while completing SPT to toilet. Patient returned to w/ via SPT, demonstrating series of "stutter" steps, including head down posture. Patient also ambulated along hallway rail, DRAMATIC TEACHER/CGA, 18'x 1, demonstrating bouts of "festinating" gait pattern, requiring v/c to "stop" then start with BIG steps. Patient completed gait distance in 38 steps today which was an improvement from 50 steps yesterday. Patient returned to his w/c and remained in activity room with body alarm for safety, under [facility] staff Supervision. Will continue per POC as tolerated, total treatment time 16 minutes. Homar Calderon, SEARCH ENGINE OPTIMIZATION ANALYST
--- NOTE | 2020-01-26 08:18 | NUR ---
OT NOTE Prior to coming to the floor spoke with charge nurse Enriqueta and reported that therapy was coming to the floor to treat this pt. Pt was seen this A.M. 1:1 for 28 minute OT session with OFFICE PROFESSIONALS and nursing staff present for observation only. Upon arrival pt was sitting upright in the dining craft in his w/c. Pt identified by name and and had no complaints at this time. Pt was taken to the bathroom due to being soiled. There he transferred sit to stand from chair level with CGA and use of grab bar for UE support followed by standing pivot to the standard commode with CGA. Pt transferred on to standard commode with CGA for safety. Pt doffed shirt with Solis and pants with modA. Pt then donned pants with modA. When doning shirt pt became very aggitated with sequencing issues stating "this is a joke, there is too many holes I should just blast you out into the hallway." Pt then required maxA for donning shirt. Sit to stand then completed from commode with CGA followed by standing pivot to the w/c with CGA. Pt was left sitting upright in the w/c in the dining craft under [facility] staff supervision and body alarm activated for safety. Continue with rec D/C plan to SNF. TE Sarah
--- NOTE | 2020-01-26 08:30 | NUR ---
Treatment Plan meeting was held with Dr. Sweeney, ADRIEL Nance, RN, AT, HOOP RIVETER-S and Mobile Security Architect. Plan for discharge Sat/. Pt. is accepted at [facility].
--- NOTE | 2020-01-26 11:31 | NUR ---
AM GROUP PT WAS PRESENT FOR MORNING GROUP THERAPY AND DID LOOK AT THE NEWSPAPER FOR A FEW MINUTES BEFORE PUTTING HEAD DOWN ON THE TABLE AND FALLING TO SLEEP. PT EXHIBITED NO ADVERSE BEHAVIORS WHILE IN GROUP.
--- NOTE | 2020-01-26 11:53 | NUR ---
Discharge Paperwork along with Individual Treatment Plan faxed to [facility].
--- NOTE | 2020-01-26 12:02 | NUR ---
Precert started for [facility] by [facility].
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
--- NOTE | 2020-01-26 13:07 | NUR ---
PHYSICAL THERAPY CO-SIGN I approve of the Physical Therapy notes written above. REMBERTO TAY, PT, DPT
--- NOTE | 2020-01-26 13:20 | NUR ---
OCCUPATIONAL THERAPY CO-SIGN I approve of the Occupational Therapy notes written above. Christie Berkowitz, OTR/L
--- NOTE | 2020-01-26 15:38 | NUR ---
PM GROUP PT WAS PRESENT FOR AFTERNOON GROUP THERAPY BUT CHOSE NOT TO PARTICIPATE. PT SAT AT A TABLE WITH HIS HEAD DOWN FOR MOST OF THE TIME. PT EXHIBITED NO ADVERSE BEHAVIORS WHILE IN GROUP.
--- NOTE | 2020-01-26 16:01 | NUR ---
Shift chart check completed.
[2020-01-26 20:00] VITALS: BP 115/62
--- NOTE | 2020-01-26 23:47 | NUR ---
P-CONFUSED, IRRITABLE, PREOCCUPIED I-REDIRECTION WITH 1:1 THERAPEUTIC INTERVENTIONS AND PRESENT REALITY. EDUCATE AND ENCOURAGE MEDICATION COMPLIANCE R-PATIENT MEDICATION COMPLIANT AT HS. PATIENT WITH NO HALLUCINATIONS OR DELUSIONS. PATIENT WITH NO SUICIDAL OR HOMICIDAL IDEATIONS. 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 PATIENT IRRITABLE AT HS WHEN CARE BEING PROVIDED BUT NURSING STAFF ABLE TO REDIRECT. PATIENT PREOCCUPIED WITH HIS AND UPSET AND USING VULGAR LANGUAGE DUE TO HIS NOT BEING NOT AT HOSPITAL. THERAPEUTIC 1:1 COMMUNICATION EFFECTIVE. NOURISHMENT AND FLUIDS PROVIDED AT HS. P-CONTINUE TO ENCOURAGE MEDICATION COMPLIANCE, CONTINUE TO PRESENT REALITY, ENCOURAGE GROUP THERAPY WHILE AWAKE
--- NOTE | 2020-01-27 05:09 | NUR ---
Discharge photographs taken with this RN along with Kal nurse caring for patient without diffcultly.
--- NOTE | 2020-01-27 05:39 | NUR ---
PATIENT SLEPT 8 HOURS OF INTERRUPTED SLEEP THROUGHOUT SHIFT. Q 15 MINUTE CHECKS MAINTAINED. 24 HR chart check completed.
--- NOTE | 2020-01-27 07:30 | NUR ---
Patient eating breakfast in dining room with peers at this time. Respirations easy and regular. Vital signs stable. No overt distress. MADELYN JUAREZ and team on unit to see pt at this time.
--- NOTE | 2020-01-27 07:55 | NUR ---
PHYSICAL THERAPY Patient seen this am for therapy visit and was sitting at table in activity room w/c, following breakfast, upon therapist arrival. Patient identified by name / and was mostly pleasant this morning, voicing no new c/o's. Patient instructed / performed seated B LE therex, all planes, x 15 reps each to increase LE strength without c/o, then completed sit to stand transfer at rail in hallway, CGA x 1. 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 Patient is still very fearful of falling and fatigues quickly, requireing w/c follow for safety. Patient returned to table in activity room w/c and remained under [facility] staff Supervision. Will continue per POC as tolerated, total treatment time 23 minutes. Homar Calderon, SKIN CARE CONSULTANT
[2020-01-27 08:24] VITALS: BP 119/72
--- NOTE | 2020-01-27 08:30 | NUR ---
Treatment Plan meeting was held Via Telephone with Dr. Sweeney, ADRIEL Nance, RN, AT, JOB RECRUITER-S and Materials Management Supervisor. Plan for discharge /Saturday. Precert is Pending for NH Placement at [facility].
--- NOTE | 2020-01-27 10:13 | NUR ---
Additional Clinicals faxed to [facility] Attn: [place] [phone].
--- NOTE | 2020-01-27 11:36 | NUR ---
AM GROUP PT WAS PRESENT FOR MORNING GROUP THERAPY SITTING AT A TABLE WITH HIS HEAD DOWN. PT SLEPT THE ENTIRE GROUP TIME.
--- NOTE | 2020-01-27 12:01 | NUR ---
CONTINUED REVIEWED FAXED TO ADARSH AT [facility] AT [phone].
--- NOTE | 2020-01-27 12:39 | NUR ---
Patient questioning where his is. Reoriented pt to place and situation. Pt became tearful as he stated that he just wants to see his and hold her hand. Empathized with pt and offered support. Encourage pt to eat his lunch and assisted him in drinking some Glucerna. Continued to be supportive of pt as he spoke further of wanting to return home to see his .
--- NOTE | 2020-01-27 13:36 | NUR ---
CALLED ADARSH AT [facility] AND LEFT HER VOICEMAIL THAT AUTH WAS OBTAINED FOR PT TO GO TO [facility] AND THAT HE WOULD BE DISCHARGED TOMORROW.
--- NOTE | 2020-01-27 13:39 | NUR ---
Received Call from Nelida at [facility]. Auth Received. Pt. will discharge tommorow. Call Placed to Nilda Sheldon Director Of Human Resources to notify. Copy of [facility] and Approval Letter faxed to [facility] Attn: Nelida.
--- NOTE | 2020-01-27 14:40 | NUR ---
Spoke with pt's Ines and notified her that pt's insurance has authorized pt to discharge to [facility]. Confirmed with Ines that she is wanting ambulance transport for pt.
[2020-01-27] MEDS ORDERED: DOK COLACE100 MG PO (15:04)
[2020-01-27] MEDS ORDERED: MIRALAX POWDER17 G1 PO (15:04)
--- NOTE | 2020-01-27 15:36 | NUR ---
PM GROUP/DREAM CATCHERS PT WAS PRESENT FOR AFTERNOON GROUP THERAPY BUT DID NOT PARTICIPATE. PT PUT HEAD ON TABLE AND RESTED THE ENTIRE TIME
--- NOTE | 2020-01-27 16:01 | NUR ---
No adverse behaviors this shift. Pt is alert with confusion and memory gaps per pt baseline. Resps easy and even on room air. Mood stable with one brief period of tearfulness as pt spoke about missing his . Pt easily redirected this shift. Pt denies SI/HI, intent or plan. Pt denies hallucinations, no response to internal stimuli noted. No paranoia or delusions noted. Compliant with hands on care, no aggressive behaviors displayed. Good appetite with adequate fluid intake noted. No distress noted. Plan to continue current tx, continue to monitor mood and behaviors, provide appropriate reorientation, redirection and 1:1 as needed.
--- NOTE | 2020-01-27 16:05 | NUR ---
Shift chart check completed.
--- NOTE | 2020-01-27 16:05 | NUR ---
Shift chart check completed.
[2020-01-27 18:59] VITALS: BP 116/64
--- NOTE | 2020-01-27 23:42 | NUR ---
P-CONFUSED, IRRITABLE, PREOCCUPIED I-REDIRECTION WITH 1:1 THERAPEUTIC INTERVENTIONS AND PRESENT REALITY. EDUCATE AND ENCOURAGE MEDICATION COMPLIANCE R-PATIENT MEDICATION COMPLIANT AT HS. PATIENT WITH NO HALLUCINATIONS OR DELUSIONS. PATIENT WITH NO SUICIDAL OR HOMICIDAL IDEATIONS. 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 PATIENT IRRITABLE AT HS WHEN CARE BEING PROVIDED BUT NURSING STAFF ABLE TO REDIRECT. PATIENT PREOCCUPIED WITH HIS AND UPSET AND USING VULGAR LANGUAGE DUE AT TIMES BUT ABLE TO EASILY REDIRECT. THERAPEUTIC 1:1 COMMUNICATION EFFECTIVE. P-CONTINUE TO ENCOURAGE MEDICATION COMPLIANCE, CONTINUE TO PRESENT REALITY, ENCOURAGE GROUP THERAPY WHILE AWAKE
--- NOTE | 2020-01-28 06:40 | NUR ---
PATIENT SLEPT 8 HOURS OF UNINTERRUPTED SLEEP THROUGHOUT SHIFT. Q 15 MINUTE CHECKS MAINTAINED. 24 HR chart check completed.
[2020-01-28 07:40] VITALS: BP 128/66
--- NOTE | 2020-01-28 08:00 | NUR ---
Patient in dining room with peers. Respirations easy and regular. Vital signs stable. No overt distress. TAMY RUDEA
--- NOTE | 2020-01-28 08:04 | NUR ---
OT NOTE Prior to coming to the floor spoke with nurse Muniz and reported that therapy was coming to the floor to treat this pt. Pt was seen this A.M. 1:1 for 24 minute OT session with nursing staff present for observation only. Upon arrival pt was sitting upright in the mireya chair in the dining craft. Pt identified by name and and had no complaints at this time. Pt completed AROM to R and LUE's over all joints and all planes for 1 X 10 to increase and restore maximum functional use. Pt was then taken to his bedroom, there pt completed sit to stand from chair level with CGA for safety followed by functional mobility into the bathroom with CGA NETWORK INFRASTRUCTURE ARCHITECT. Throughout pt required verbal prompts for taking bigger steps due to shuffling his feet. Pt transferred on to standard commode with CGA. Pt doffed pants and underpants with modA and shirt with Solis. Then donned pants and underpants with modA and shirt with Solis. Sit to stand then completed from commode with CGA and use of grab bar. Functional mobility then completed back to his chair with CGA NETWORK INFRASTRUCTURE ARCHITECT and again required verbal prompts for taking bigger steps throughout. Pt was left sitting upright in the mireya chair in the dining craft under U staff supervision, body alarm activated for safety, and under U staff supervision. Continue with rec D/C plan to SNF. TE Sarah
--- NOTE | 2020-01-28 08:30 | NUR ---
Treatment Plan meeting was held via Telephone with Dr. Sweeney, RN, AT, EQUIPMENT MAINT TECH-S and Urgent Care Technician. Plan for discharge today with Pt. accepted at [facility]. Transportation has been arranged with [facility] to Transport with Work Adjustment Instructor time 1:00 p.m.
[2020-01-28] MEDS ORDERED: SEROQUEL100 MG PO (08:59)
[2020-01-28] MEDS ORDERED: VISTARIL25 MG PO (08:59)
[2020-01-28] MEDS ORDERED: ATIVAN1 MG PO (09:02)
--- NOTE | 2020-01-28 09:40 | NUR ---
DR. VELASCO AND TEAM ON UNIT TO ASSESS PT AT THIS TIME.
--- NOTE | 2020-01-28 09:55 | NUR ---
PHYSICAL THERAPY CO-SIGN I approve of the Physical Therapy notes written above. REMBERTO TAY PT, DPT
--- NOTE | 2020-01-28 11:30 | NUR ---
AM GROUP/ETIENNE DICKENS PT DID NOT ATTEND MORNING GROUP THERAPY. PT WAS IN A QUIET ROOM RESTING. PT IS SET TO DISCHARGED FROM THE UNIT THIS AFTERNOON.
--- NOTE | 2020-01-28 11:52 | NUR ---
PRN Miralax given at this time for no BM x 3 days. +BSx4. Abd soft nontender. Pt denies pain/discomfort.
--- NOTE | 2020-01-28 12:00 | NUR ---
Nurse to nurse report given to Mya at [facility]. Medication list faxed to facility per request.
--- NOTE | 2020-01-28 13:16 | NUR ---
Pt discharged at this time to [facility] via [facility] ambulance service stretcher with 2 message broker developer. All personal items were sent with the pt. Discharge packet provided for facility. Pt left the unit in stable condition at 1316
--- NOTE | 2020-01-28 13:44 | NUR ---
Patient discharged today to [facility] for skilled level of care. Follow-up will be with Dr Oliver, visiting psychiatrist. While at [facility], pt's behaviors improved. Pt continued to be confused with poor short-term memory. Pt did participate in some of the [facility] programming.
--- NOTE | 2020-01-29 08:27 | NUR ---
OCCUPATIONAL THERAPY CO-SIGN I approve of the Occupational Therapy notes written above. CHEYENNE PETER, OTR/L
== END 2020-01-28 13:16 | disposition other institution (70) | DRG 883 ==
LOC: 3N 20:02
PROVIDERS: ADMIT Psychiatry & Neurology Psychiatry
DX: F63.81 Intermittent explosive disorder (principal); E44.0 Moderate protein-calorie malnutrition; F25.9 Schizoaffective disorder, unspecified; F32.9 Major depressive disorder, single episode, unspecified; G30.9 Alzheimer's disease, unspecified; F02.80 Dementia in other diseases classified elsewhere, unspecified severity, without behavioral disturbance, psychotic disturbance, mood disturbance, and anxiety; I10 Essential (primary) hypertension; E78.5 Hyperlipidemia, unspecified; E55.9 Vitamin D deficiency, unspecified; R26.2 Difficulty in walking, not elsewhere classified; D53.9 Nutritional anemia, unspecified; K59.00 Constipation, unspecified; F41.9 Anxiety disorder, unspecified; E11.51 Type 2 diabetes mellitus with diabetic peripheral angiopathy without gangrene; F17.210 Nicotine dependence, cigarettes, uncomplicated; S90.922A Unspecified superficial injury of left foot, initial encounter; X58.XXXA Exposure to other specified factors, initial encounter; Y93.89 Activity, other specified; Y92.89 Other specified places as the place of occurrence of the external cause; Y99.8 Other external cause status; Z79.899 Other long term (current) drug therapy; Z86.73 Personal history of transient ischemic attack (TIA), and cerebral infarction without residual deficits; Z79.84 Long term (current) use of oral hypoglycemic drugs; Z79.82 Long term (current) use of aspirin